=== PATIENT | male | born 1960 | race African-American/Black ===

== ENCOUNTER 2021-09-09 17:20 | Inpatient (IN) | payer MEDICAID ==
[~2021-09-09] VITALS: Ht 182.9 cm; Wt 50.6 kg
[2021-09-09] MEDS ORDERED: SODIUM CHLORIDE 0.9% 1,000 ML IV ONE (17:30)
[2021-09-09 18:06] LABS: BG BASE EXCESS -15.1 mmol/L (-2.0-2.0); BG CARBOXYHEMOGLOBIN 1.3 % (0.5-1.5); BG DEOXYHEMOGLOBIN 1.9 % (0.0-5.0); BG HCO3 ACT 9.6 mmol/L (22.0-26.0); BG METHEMOGLOBIN 0.1 % (0.0-1.5); BG OXYGEN SATURATION 98.1 % (92.0-98.5); BG OXYHEMOGLOBIN 96.7 % (94.0-97.0); BG PCO2 20.3 mmHg (35.0-45.0); BG PH 7.292 (7.350-7.450); BG PO2 127.3 mmHg (75.0-100.0); BG SAMPLE SITE RIGHT BRACHIAL; BG TOTAL HEMOGLOBIN 10.1 g/dL (12.0-18.0); BG VENT MODE NASAL CANNULA
[2021-09-09 18:44] LABS: CLARITY URINE CLOUDY (CLEAR); COLOR URINE YELLOW (YELLOW); KETONES URINE 1+ (NEGATIVE); LEUKOCYTE ESTERASE URINE 3+ (NEGATIVE); NITRITE URINE POSITIVE (NEGATIVE); OCCULT BLOOD URINE TRACE (NEGATIVE); PROTEIN URINE 1+ (NEGATIVE); SPECIFIC GRAVITY URINE 1.014 (1.005-1.030); UROBILINOGEN URINE 0.2 E.U./dL (0.2-1.0)
[2021-09-09 18:49] LABS: BASOPHILS % 0.3 % (0.0-2.0); EOSINOPHILS % 3.7 % (0.0-5.0); HEMATOCRIT. 27.4 % (42.0-52.0); HEMOGLOBIN. 8.7 g/dL (14.0-18.0); LYMPHOCYTES % 7.1 % (20.0-50.0); MEAN CORPUSCULAR HEMOGLOBIN 23.9 pg (28.0-32.0); MEAN CORPUSCULAR VOLUME 75.3 fL (80.0-94.0); MEAN PLATELET VOLUME 8.5 fl (7.4-10.4); MONOCYTES % 5.6 % (2.0-8.0); NEUTROPHILS % 83.3 % (40.0-76.0); PLATELET 662 x1000/uL (130-400); RED BLOOD CELL COUNT 3.63 mill/uL (4.7-6.1); RED CELL DISTRIBUTION WIDTH 15.6 % (11.6-14.6)
[2021-09-09 18:53] LABS: CHLORIDE 109 mEq/L (98-107)
[2021-09-09] MEDS ORDERED: CALCIUM GLUCONATE 1,000 MG in DEXT 5% WATER 100 ML IV ONE (19:15)
[2021-09-09] MEDS ORDERED: DEXTROSE 50% WATER 50ML SYRINGE IV ONE (19:15)
[2021-09-09] MEDS ORDERED: SODIUM CHLORIDE 0.9% 1000ML BAG (SEPSIS BOLUS) IV ONE (19:15)
[2021-09-09] MEDS ORDERED: INSULIN REGULAR (HUMULIN R) 300UNITS/3ML VIAL IV ONE (19:15)
[2021-09-09] MEDS ORDERED: SODIUM BICARBONATE 8.4% 1 MEQ/ML 50ML SYR IV ONE (19:15)
[2021-09-09] MEDS ORDERED: VANCOMYCIN 1 G PREMIX 200 ML IV ONE (19:15)
[2021-09-09] MEDS ORDERED: PIPERACILLIN/TAZ 3.375G PREMIX 50 ML IV ONE (19:15)
[2021-09-09] MEDS ORDERED: CALCIUM GLUCONATE 1GM PREMIX 50 ML IV NR (20:30)
[2021-09-10 11:30] LABS: CHLORIDE 118 mEq/L (98-107)
[2021-09-10] MEDS: SODIUM CHLORIDE 0.45% 1,000 ML IV SCH (16:30)
[2021-09-10] MEDS ORDERED: ONDANSETRON HCL 4MG/2ML INJ IV PRN (16:30)
[2021-09-10] MEDS ORDERED: CEFTRIAXONE 1 G PREMIX 50 ML IV SCH (17:00)
[2021-09-10 18:22] LABS: TOTAL IRON BINDING CAPACITY 123 ug/dL (250-450)
[2021-09-10 19:09] VITALS: BP 101/65
[2021-09-10 20:00] VITALS: BP 97/69
[2021-09-11] VITALS: BP 104/66
[2021-09-11 04:00] VITALS: BP 90/62
[2021-09-11] MEDS: SODIUM CHLORIDE 0.45% 1,000 ML IV SCH ×2 (06:17→20:37)
[2021-09-11 07:21] LABS: BASOPHILS % 0.2 % (0.0-2.0); EOSINOPHILS % 7.3 % (0.0-5.0); HEMATOCRIT. 25.7 % (42.0-52.0); HEMOGLOBIN. 7.9 g/dL (14.0-18.0); LYMPHOCYTES % 7.6 % (20.0-50.0); MEAN CORPUSCULAR HEMOGLOBIN 23.5 pg (28.0-32.0); MEAN CORPUSCULAR VOLUME 76.7 fL (80.0-94.0); MEAN PLATELET VOLUME 8.2 fl (7.4-10.4); MONOCYTES % 6.9 % (2.0-8.0); PLATELET 422 x1000/uL (130-400); RED BLOOD CELL COUNT 3.35 mill/uL (4.7-6.1); RED CELL DISTRIBUTION WIDTH 15.6 % (11.6-14.6)
[2021-09-11 08:00] VITALS: BP 93/63
[2021-09-11] MEDS: TAMSULOSIN HCL 0.4MG SR CAPSULE PO SCH (09:34)
[2021-09-11 12:00] VITALS: BP 95/66
[2021-09-11] MEDS: DOCUSATE SODIUM 250MG CAPSULE PO SCH (14:15)
[2021-09-11 16:00] VITALS: BP 96/67
[2021-09-11] MEDS: FERROUS SULFATE 325MG TABLET PO SCH (18:29)
[2021-09-11 20:00] VITALS: BP 96/68
[2021-09-11] MEDS ORDERED: CEFTRIAXONE 1,000 MG in DEXTROSE 5% WATER 50 ML IV SCH (20:00)
[2021-09-11] MEDS: IPRATROPIUM/ALBUTEROL 0.5-3(2.5)MG/3ML NEB HHN SCH (22:31)
[2021-09-12] MEDS: GUAIFENESIN-DM 200MG-20MG/10ML UDC PO PRN (00:30)
[2021-09-12 00:42] VITALS: BP 103/67
[2021-09-12] MEDS: IPRATROPIUM/ALBUTEROL 0.5-3(2.5)MG/3ML NEB HHN SCH ×5 (03:07→13:17)
[2021-09-12] MEDS: SODIUM CHLORIDE 0.45% 1,000 ML IV SCH ×2 (03:24→21:12)
[2021-09-12 04:00] VITALS: BP 94/65
[2021-09-12 06:15] LABS: CHLORIDE 117 mEq/L (98-107)
[2021-09-12 08:00] VITALS: BP 94/63
[2021-09-12] MEDS: DOCUSATE SODIUM 250MG CAPSULE PO SCH (09:00)
[2021-09-12] MEDS: TAMSULOSIN HCL 0.4MG SR CAPSULE PO SCH (09:00)
[2021-09-12] MEDS: FERROUS SULFATE 325MG TABLET PO SCH ×3 (09:47→17:18)
[2021-09-12 12:00] VITALS: BP 93/64
[2021-09-12 16:00] VITALS: BP 119/81
[2021-09-12] MEDS: MEROPENEM 1,000 MG in SODIUM CHLORIDE 0.9% 100 ML IV SCH (17:35)
[2021-09-12 20:00] VITALS: BP 103/71
[2021-09-13] VITALS: BP 98/67
[2021-09-13 04:00] VITALS: BP 101/72
[2021-09-13] MEDS: IPRATROPIUM/ALBUTEROL 0.5-3(2.5)MG/3ML NEB HHN SCH ×3 (04:45→23:40)
[2021-09-13] MEDS: MEROPENEM 1,000 MG in SODIUM CHLORIDE 0.9% 100 ML IV SCH ×2 (06:16→19:00)
[2021-09-13] MEDS: GUAIFENESIN-DM 200MG-20MG/10ML UDC PO PRN (06:21)
[2021-09-13 06:38] LABS: BASOPHILS % 0.5 % (0.0-2.0); CHLORIDE 118 mEq/L (98-107); EOSINOPHILS % 9.8 % (0.0-5.0); LYMPHOCYTES % 12.5 % (20.0-50.0); MEAN CORPUSCULAR HEMOGLOBIN 24.1 pg (28.0-32.0); MEAN CORPUSCULAR VOLUME 75.6 fL (80.0-94.0); MEAN PLATELET VOLUME 8.1 fl (7.4-10.4); MONOCYTES % 9.4 % (2.0-8.0); NEUTROPHILS % 67.8 % (40.0-76.0); PLATELET 312 x1000/uL (130-400); RED BLOOD CELL COUNT 2.56 mill/uL (4.7-6.1); RED CELL DISTRIBUTION WIDTH 15.4 % (11.6-14.6)
[2021-09-13 07:56] LABS: HEMATOCRIT. 19.4 % (42.0-52.0); HEMOGLOBIN. 6.2 g/dL (14.0-18.0)
[2021-09-13] MEDS: TAMSULOSIN HCL 0.4MG SR CAPSULE PO SCH (08:53)
[2021-09-13] MEDS: DOCUSATE SODIUM 250MG CAPSULE PO SCH (08:53)
[2021-09-13] MEDS: FERROUS SULFATE 325MG TABLET PO SCH ×3 (08:53→18:59)
[2021-09-13] MEDS: ACETAMINOPHEN 325MG TABLET PO PRN ×3 (08:54→22:11)
[2021-09-13] MEDS: SODIUM CHLORIDE 0.45% 1,000 ML IV SCH (15:17)
[2021-09-13 20:00] VITALS: BP 102/67
[2021-09-13 22:58] VITALS: BP 103/63
[2021-09-13 23:13] VITALS: BP 106/71
[2021-09-14] VITALS (11 sets, daily range): BP systolic 100–116; BP diastolic 71–83
[2021-09-14] MEDS: SODIUM CHLORIDE 0.45% 1,000 ML IV SCH ×2 (00:30→23:30)
[2021-09-14] MEDS: MEROPENEM 1,000 MG in SODIUM CHLORIDE 0.9% 100 ML IV SCH ×2 (06:20→18:15)
[2021-09-14 06:42] LABS: CHLORIDE 117 mEq/L (98-107)
[2021-09-14 06:55] LABS: HEMATOCRIT. 29.7 % (42.0-52.0); HEMOGLOBIN. 9.6 g/dL (14.0-18.0); RED BLOOD CELL COUNT 3.82 mill/uL (4.7-6.1)
[2021-09-14 06:56] LABS: BASOPHILS % 0.5 % (0.0-2.0); EOSINOPHILS % 10.8 % (0.0-5.0); LYMPHOCYTES % 9.2 % (20.0-50.0); MEAN CORPUSCULAR VOLUME 77.8 fL (80.0-94.0); MEAN PLATELET VOLUME 8.1 fl (7.4-10.4); MONOCYTES % 8.2 % (2.0-8.0); NEUTROPHILS % 71.3 % (40.0-76.0); PLATELET 306 x1000/uL (130-400); RED CELL DISTRIBUTION WIDTH 17.5 % (11.6-14.6)
[2021-09-14] MEDS: FERROUS SULFATE 325MG TABLET PO SCH ×3 (08:47→18:14)
[2021-09-14] MEDS: TAMSULOSIN HCL 0.4MG SR CAPSULE PO SCH (08:47)
[2021-09-14] MEDS: DOCUSATE SODIUM 250MG CAPSULE PO SCH (08:47)
[2021-09-14] MEDS: IPRATROPIUM/ALBUTEROL 0.5-3(2.5)MG/3ML NEB HHN SCH ×4 (08:57→20:32)
[2021-09-14] MEDS: PANTOPRAZOLE SODIUM 40 MG/VIAL IV SCH ×2 (15:04→23:30)
[2021-09-15] VITALS: BP 109/78
[2021-09-15] MEDS: IPRATROPIUM/ALBUTEROL 0.5-3(2.5)MG/3ML NEB HHN SCH ×5 (01:01→16:40)
[2021-09-15] MEDS: SODIUM CHLORIDE 0.45% 1,000 ML IV SCH ×2 (03:10→17:45)
[2021-09-15 04:00] VITALS: BP 112/80
[2021-09-15] MEDS: MEROPENEM 1,000 MG in SODIUM CHLORIDE 0.9% 100 ML IV SCH ×2 (06:03→17:52)
[2021-09-15 07:48] LABS: CHLORIDE 119 mEq/L (98-107)
[2021-09-15] MEDS: FERROUS SULFATE 325MG TABLET PO SCH ×3 (07:50→17:45)
[2021-09-15 07:52] LABS: INR 1.2
[2021-09-15 08:30] VITALS: BP 118/75
[2021-09-15 08:44] LABS: BASOPHILS % 0.4 % (0.0-2.0); EOSINOPHILS % 13.1 % (0.0-5.0); HEMATOCRIT. 28.4 % (42.0-52.0); HEMOGLOBIN. 9.3 g/dL (14.0-18.0); LYMPHOCYTES % 12.4 % (20.0-50.0); MEAN CORPUSCULAR HEMOGLOBIN 25.5 pg (28.0-32.0); MEAN CORPUSCULAR VOLUME 77.7 fL (80.0-94.0); MEAN PLATELET VOLUME 8.6 fl (7.4-10.4); MONOCYTES % 9.5 % (2.0-8.0); NEUTROPHILS % 64.6 % (40.0-76.0); PLATELET 282 x1000/uL (130-400); RED BLOOD CELL COUNT 3.66 mill/uL (4.7-6.1); RED CELL DISTRIBUTION WIDTH 17.4 % (11.6-14.6)
[2021-09-15] MEDS: TAMSULOSIN HCL 0.4MG SR CAPSULE PO SCH (09:00)
[2021-09-15] MEDS: DOCUSATE SODIUM 250MG CAPSULE PO SCH (09:00)
[2021-09-15] MEDS: PANTOPRAZOLE SODIUM 40 MG/VIAL IV SCH ×2 (09:48→21:20)
[2021-09-15 12:20] VITALS: BP 115/76
[2021-09-15 16:00] VITALS: BP 118/92
[2021-09-15] MEDS ORDERED: MIDAZOLAM HCL 2 MG/2 ML VIAL ONE ×2 (16:06→16:07)
[2021-09-15] MEDS ORDERED: PROPOFOL 200MG/20ML VIAL IV ONE (16:07)
[2021-09-15] MEDS ORDERED: LIDOCAINE HCL 1% 20ML VIAL (Pyxis) INJ ONE (16:08)
[2021-09-16] VITALS (7 sets, daily range): BP systolic 100–124; BP diastolic 60–90
[2021-09-16] MEDS: MEROPENEM 1,000 MG in SODIUM CHLORIDE 0.9% 100 ML IV SCH ×2 (05:05→17:52)
[2021-09-16] MEDS: SODIUM CHLORIDE 0.45% 1,000 ML IV SCH ×2 (05:06→17:52)
[2021-09-16] MEDS: IPRATROPIUM/ALBUTEROL 0.5-3(2.5)MG/3ML NEB HHN SCH ×4 (08:12→16:37)
[2021-09-16] MEDS: DOCUSATE SODIUM 250MG CAPSULE PO SCH (09:00)
[2021-09-16] MEDS: PANTOPRAZOLE SODIUM 40 MG/VIAL IV SCH ×2 (10:03→20:51)
[2021-09-16] MEDS: TAMSULOSIN HCL 0.4MG SR CAPSULE PO SCH (10:04)
[2021-09-16] MEDS: FERROUS SULFATE 325MG TABLET PO SCH ×3 (10:04→17:52)
[2021-09-16] MEDS: GUAIFENESIN-DM 200MG-20MG/10ML UDC PO PRN ×2 (10:09→17:53)
[2021-09-16] MEDS: ACETAMINOPHEN 325MG TABLET PO PRN (20:52)
[2021-09-17 04:00] VITALS: BP 121/80
[2021-09-17] MEDS: MEROPENEM 1,000 MG in SODIUM CHLORIDE 0.9% 100 ML IV SCH (06:14)
[2021-09-17] MEDS: GUAIFENESIN-DM 200MG-20MG/10ML UDC PO PRN ×2 (06:42→21:44)
[2021-09-17 08:00] VITALS: BP 122/86
[2021-09-17] MEDS: SODIUM CHLORIDE 0.45% 1,000 ML IV SCH ×2 (08:30→21:36)
[2021-09-17] MEDS: DOCUSATE SODIUM 250MG CAPSULE PO SCH (09:00)
[2021-09-17] MEDS: TAMSULOSIN HCL 0.4MG SR CAPSULE PO SCH (09:14)
[2021-09-17] MEDS: FERROUS SULFATE 325MG TABLET PO SCH ×3 (09:14→18:03)
[2021-09-17] MEDS: THIAMINE HCL 100MG TABLET PO SCH (09:14)
[2021-09-17] MEDS: PANTOPRAZOLE SODIUM 40 MG/VIAL IV SCH ×2 (09:14→21:36)
[2021-09-17] MEDS: IPRATROPIUM/ALBUTEROL 0.5-3(2.5)MG/3ML NEB HHN SCH ×3 (10:07→22:01)
[2021-09-17 11:40] LABS: BG BASE EXCESS -9.6 mmol/L (-2.0-2.0); BG CARBOXYHEMOGLOBIN 0.3 % (0.5-1.5); BG DEOXYHEMOGLOBIN 8.4 % (0.0-5.0); BG FRACTION INSPIRED OXYGEN 21; BG HCO3 ACT 14.7 mmol/L (22.0-26.0); BG METHEMOGLOBIN 0.3 % (0.0-1.5); BG OXYGEN SATURATION 91.5 % (92.0-98.5); BG PCO2 26.8 mmHg (35.0-45.0); BG PH 7.356 (7.350-7.450); BG PO2 60.6 mmHg (75.0-100.0); BG TOTAL HEMOGLOBIN 9.9 g/dL (12.0-18.0); BG VENT MODE ROOM AIR
[2021-09-17 12:00] VITALS: BP 104/72
[2021-09-17 16:00] VITALS: BP 120/70
[2021-09-17 20:00] VITALS: BP 113/80
[2021-09-18] VITALS (7 sets, daily range): BP systolic 106–129; BP diastolic 73–94
[2021-09-18] MEDS: IPRATROPIUM/ALBUTEROL 0.5-3(2.5)MG/3ML NEB HHN SCH ×4 (08:21→20:39)
[2021-09-18] MEDS: FERROUS SULFATE 325MG TABLET PO SCH ×3 (08:39→17:28)
[2021-09-18] MEDS: GUAIFENESIN-DM 200MG-20MG/10ML UDC PO PRN ×2 (08:39→22:09)
[2021-09-18] MEDS: PANTOPRAZOLE SODIUM 40 MG/VIAL IV SCH ×2 (09:06→22:00)
[2021-09-18] MEDS: TAMSULOSIN HCL 0.4MG SR CAPSULE PO SCH (09:11)
[2021-09-18] MEDS: DOCUSATE SODIUM 250MG CAPSULE PO SCH (09:11)
[2021-09-18] MEDS: THIAMINE HCL 100MG TABLET PO SCH (09:12)
[2021-09-18] MEDS: MULTIVITAMINS,THER W-MINERALS TABLET PO SCH (09:12)
[2021-09-18] MEDS ORDERED: FLUTICASONE PROPIONATE 50MCG/SPRAY BOTTLE BOTHNSTRLS SCH ×2 (13:00→21:00)
[2021-09-18] MEDS: FLUTICASONE PROPIONATE 50MCG/SPRAY BOTTLE BOTHNSTRLS PRN (13:23)
[2021-09-18] MEDS: SODIUM CHLORIDE 0.45% 1,000 ML IV SCH (17:31)
[2021-09-19] VITALS (16 sets, daily range): BP systolic 90–109; BP diastolic 58–71
[2021-09-19] MEDS: SODIUM CHLORIDE 0.45% 1,000 ML IV SCH (00:30)
[2021-09-19] MEDS: IPRATROPIUM/ALBUTEROL 0.5-3(2.5)MG/3ML NEB HHN SCH ×5 (02:58→20:34)
[2021-09-19] MEDS: FLUTICASONE PROPIONATE 50MCG/SPRAY BOTTLE BOTHNSTRLS PRN (05:21)
[2021-09-19 06:10] LABS: BASOPHILS % 0.5 % (0.0-2.0); EOSINOPHILS % 10.8 % (0.0-5.0); HEMATOCRIT. 21.9 % (42.0-52.0); HEMOGLOBIN. 7.2 g/dL (14.0-18.0); LYMPHOCYTES % 13.5 % (20.0-50.0); MEAN CORPUSCULAR HEMOGLOBIN 25.4 pg (28.0-32.0); MEAN CORPUSCULAR VOLUME 77.6 fL (80.0-94.0); MONOCYTES % 7.3 % (2.0-8.0); NEUTROPHILS % 67.9 % (40.0-76.0); PLATELET 260 x1000/uL (130-400); RED BLOOD CELL COUNT 2.82 mill/uL (4.7-6.1)
[2021-09-19 06:40] LABS: INR 1.2; PROTHROMBIN TIME 13.2 sec (9.6-11.0)
[2021-09-19] MEDS: FERROUS SULFATE 325MG TABLET PO SCH ×3 (07:50→17:39)
[2021-09-19] MEDS ORDERED: SODIUM CHLORIDE 0.9% 500 ML IV ONE (08:45)
[2021-09-19] MEDS: TAMSULOSIN HCL 0.4MG SR CAPSULE PO SCH (09:00)
[2021-09-19] MEDS: THIAMINE HCL 100MG TABLET PO SCH (09:00)
[2021-09-19] MEDS: DOCUSATE SODIUM 250MG CAPSULE PO SCH (09:00)
[2021-09-19] MEDS: MULTIVITAMINS,THER W-MINERALS TABLET PO SCH (09:00)
[2021-09-19] MEDS: PANTOPRAZOLE SODIUM 40 MG/VIAL IV SCH ×2 (10:13→21:37)
[2021-09-19] MEDS ORDERED: SPIR25TA6 PO (11:26)
[2021-09-19] MEDS ORDERED: ATOR20TA65 MT (11:26)
[2021-09-19] MEDS ORDERED: SACU1TAB PO (11:26)
[2021-09-19] MEDS ORDERED: ASPI-1497 PO (11:26)
[2021-09-19] MEDS ORDERED: ATOR20TA65 PO (11:26)
[2021-09-19] MEDS ORDERED: FURO20TA4 PO (11:26)
[2021-09-19] MEDS ORDERED: METO25TA6 PO (11:26)
[2021-09-19] MEDS: MEROPENEM 1,000 MG in SODIUM CHLORIDE 0.9% 100 ML IV SCH (17:37)
[2021-09-19 20:21] LABS: HEMATOCRIT 25.8 % (42.0-52.0); HEMOGLOBIN 8.2 g/dL (14.0-18.0)
[2021-09-20] VITALS (8 sets, daily range): BP systolic 91–113; BP diastolic 60–83
[2021-09-20] MEDS: IPRATROPIUM/ALBUTEROL 0.5-3(2.5)MG/3ML NEB HHN SCH ×5 (00:15→20:00)
[2021-09-20] MEDS: MEROPENEM 1,000 MG in SODIUM CHLORIDE 0.9% 100 ML IV SCH ×2 (06:33→17:38)
[2021-09-20 06:39] LABS: HEMOGLOBIN. 7.2 g/dL (14.0-18.0); MEAN CORPUSCULAR HEMOGLOBIN 27.2 pg (28.0-32.0); MEAN CORPUSCULAR VOLUME 79.5 fL (80.0-94.0); MEAN PLATELET VOLUME 9.1 fl (7.4-10.4); PLATELET 202 x1000/uL (130-400); RED BLOOD CELL COUNT 2.64 mill/uL (4.7-6.1); RED CELL DISTRIBUTION WIDTH 19.1 % (11.6-14.6)
[2021-09-20 06:40] LABS: CHLORIDE 120 mEq/L (98-107)
[2021-09-20] MEDS: PANTOPRAZOLE SODIUM 40 MG/VIAL IV SCH ×2 (08:57→21:28)
[2021-09-20] MEDS: TAMSULOSIN HCL 0.4MG SR CAPSULE PO SCH (08:57)
[2021-09-20] MEDS: THIAMINE HCL 100MG TABLET PO SCH (08:57)
[2021-09-20] MEDS: MULTIVITAMINS,THER W-MINERALS TABLET PO SCH (08:57)
[2021-09-20] MEDS: DOCUSATE SODIUM 250MG CAPSULE PO SCH (08:57)
[2021-09-20] MEDS: FERROUS SULFATE 325MG TABLET PO SCH ×3 (08:58→17:38)
[2021-09-20 19:19] LABS: PLATELET ESTIMATE NORMAL
[2021-09-20 21:13] LABS: HEMATOCRIT 28.1 % (42.0-52.0); HEMOGLOBIN 9.4 g/dL (14.0-18.0)
[2021-09-21] VITALS: BP 110/48
[2021-09-21 04:00] VITALS: BP 108/75
[2021-09-21] MEDS: MEROPENEM 1,000 MG in SODIUM CHLORIDE 0.9% 100 ML IV SCH ×2 (06:25→17:50)
[2021-09-21 08:00] VITALS: BP 105/77
[2021-09-21] MEDS: GUAIFENESIN-DM 200MG-20MG/10ML UDC PO PRN ×2 (09:15→17:50)
[2021-09-21] MEDS: FLUTICASONE PROPIONATE 50MCG/SPRAY BOTTLE BOTHNSTRLS PRN (09:15)
[2021-09-21] MEDS: MULTIVITAMINS,THER W-MINERALS TABLET PO SCH (09:15)
[2021-09-21] MEDS: FERROUS SULFATE 325MG TABLET PO SCH ×3 (09:15→17:50)
[2021-09-21] MEDS: THIAMINE HCL 100MG TABLET PO SCH (09:15)
[2021-09-21] MEDS: DOCUSATE SODIUM 250MG CAPSULE PO SCH (09:15)
[2021-09-21] MEDS: PANTOPRAZOLE SODIUM 40 MG/VIAL IV SCH ×2 (09:16→20:21)
[2021-09-21] MEDS: TAMSULOSIN HCL 0.4MG SR CAPSULE PO SCH (09:16)
[2021-09-21] MEDS: IPRATROPIUM/ALBUTEROL 0.5-3(2.5)MG/3ML NEB HHN SCH ×3 (09:31→20:00)
[2021-09-21 12:00] VITALS: BP 103/76
[2021-09-21 15:38] LABS: BG BASE EXCESS -11.3 mmol/L (-2.0-2.0); BG CARBOXYHEMOGLOBIN 0.2 % (0.5-1.5); BG DEOXYHEMOGLOBIN 14.5 % (0.0-5.0); BG OXYGEN SATURATION 85.5 % (92.0-98.5); BG OXYHEMOGLOBIN 85.3 % (94.0-97.0); BG PCO2 24.3 mmHg (35.0-45.0); BG PH 7.346 (7.350-7.450); BG PO2 54.2 mmHg (75.0-100.0); BG SAMPLE SITE RIGHT BRACHIAL; BG TOTAL HEMOGLOBIN 8.6 g/dL (12.0-18.0); BG VENT MODE ROOM AIR
[2021-09-21 15:45] LABS: BASOPHILS % 0.9 % (0.0-2.0); EOSINOPHILS % 16.2 % (0.0-5.0); HEMATOCRIT. 30.2 % (42.0-52.0); HEMOGLOBIN. 9.7 g/dL (14.0-18.0); LYMPHOCYTES % 12.3 % (20.0-50.0); MEAN CORPUSCULAR HEMOGLOBIN 25.8 pg (28.0-32.0); MEAN CORPUSCULAR VOLUME 80.4 fL (80.0-94.0); MONOCYTES % 6.1 % (2.0-8.0); NEUTROPHILS % 64.5 % (40.0-76.0); PLATELET 203 x1000/uL (130-400); RED BLOOD CELL COUNT 3.76 mill/uL (4.7-6.1); RED CELL DISTRIBUTION WIDTH 18.6 % (11.6-14.6)
[2021-09-21 15:57] LABS: CHLORIDE 117 mEq/L (98-107)
[2021-09-21 16:00] VITALS: BP 110/77
[2021-09-21 20:00] VITALS: BP 117/82
[2021-09-22] VITALS: BP 114/86
[2021-09-22 01:22] LABS: HEMATOCRIT 27.5 % (42.0-52.0); HEMOGLOBIN 9.2 g/dL (14.0-18.0)
[2021-09-22] MEDS: IPRATROPIUM/ALBUTEROL 0.5-3(2.5)MG/3ML NEB HHN SCH ×6 (01:50→21:00)
[2021-09-22 04:00] VITALS: BP 127/91
[2021-09-22] MEDS: MEROPENEM 1,000 MG in SODIUM CHLORIDE 0.9% 100 ML IV SCH ×2 (06:12→19:00)
[2021-09-22 07:27] LABS: CHLORIDE 119 mEq/L (98-107)
[2021-09-22 08:00] VITALS: BP 119/84
[2021-09-22] MEDS: GUAIFENESIN-DM 200MG-20MG/10ML UDC PO PRN ×2 (09:27→19:11)
[2021-09-22] MEDS: THIAMINE HCL 100MG TABLET PO SCH (09:28)
[2021-09-22] MEDS: PANTOPRAZOLE SODIUM 40 MG/VIAL IV SCH ×2 (09:28→21:27)
[2021-09-22] MEDS: DOCUSATE SODIUM 250MG CAPSULE PO SCH (09:28)
[2021-09-22] MEDS: FERROUS SULFATE 325MG TABLET PO SCH ×3 (09:28→19:01)
[2021-09-22] MEDS: MULTIVITAMINS,THER W-MINERALS TABLET PO SCH (09:28)
[2021-09-22] MEDS: TAMSULOSIN HCL 0.4MG SR CAPSULE PO SCH (09:28)
[2021-09-22 12:00] VITALS: BP 91/59
[2021-09-22 16:00] VITALS: BP 122/84
[2021-09-22 20:00] VITALS: BP 133/87
[2021-09-23] VITALS: BP 121/83
[2021-09-23 01:05] LABS: HEMATOCRIT 27.4 % (42.0-52.0); HEMOGLOBIN 8.9 g/dL (14.0-18.0)
[2021-09-23] MEDS: IPRATROPIUM/ALBUTEROL 0.5-3(2.5)MG/3ML NEB HHN SCH ×5 (01:29→21:20)
[2021-09-23 04:00] VITALS: BP 109/74
[2021-09-23] MEDS: MEROPENEM 1,000 MG in SODIUM CHLORIDE 0.9% 100 ML IV SCH ×2 (05:28→17:48)
[2021-09-23 08:07] VITALS: BP 115/80
[2021-09-23] MEDS: MULTIVITAMINS,THER W-MINERALS TABLET PO SCH (09:15)
[2021-09-23] MEDS: PANTOPRAZOLE SODIUM 40 MG/VIAL IV SCH ×2 (09:15→21:47)
[2021-09-23] MEDS: THIAMINE HCL 100MG TABLET PO SCH (09:15)
[2021-09-23] MEDS: FERROUS SULFATE 325MG TABLET PO SCH ×3 (09:15→17:48)
[2021-09-23] MEDS: DOCUSATE SODIUM 250MG CAPSULE PO SCH (09:15)
[2021-09-23] MEDS: GUAIFENESIN-DM 200MG-20MG/10ML UDC PO PRN ×2 (09:15→17:48)
[2021-09-23] MEDS: TAMSULOSIN HCL 0.4MG SR CAPSULE PO SCH (09:16)
[2021-09-23 12:07] VITALS: BP 111/78
[2021-09-23 16:16] VITALS: BP 121/84
[2021-09-23 20:00] VITALS: BP 126/83
[2021-09-24] VITALS: BP 131/82
[2021-09-24 00:48] LABS: HEMATOCRIT 26.5 % (42.0-52.0); HEMOGLOBIN 8.7 g/dL (14.0-18.0)
[2021-09-24 04:00] VITALS: BP 124/84
[2021-09-24] MEDS: IPRATROPIUM/ALBUTEROL 0.5-3(2.5)MG/3ML NEB HHN SCH ×3 (04:00→09:50)
[2021-09-24] MEDS: DOCUSATE SODIUM 250MG CAPSULE PO SCH (09:53)
[2021-09-24] MEDS: TAMSULOSIN HCL 0.4MG SR CAPSULE PO SCH (09:53)
[2021-09-24] MEDS: THIAMINE HCL 100MG TABLET PO SCH (09:53)
[2021-09-24] MEDS: MULTIVITAMINS,THER W-MINERALS TABLET PO SCH (09:53)
[2021-09-24] MEDS: FERROUS SULFATE 325MG TABLET PO SCH (09:53)
[2021-09-24] MEDS: PANTOPRAZOLE SODIUM 40 MG/VIAL IV SCH (09:54)
[2021-09-24 11:39] VITALS: BP 113/76
[2021-09-24 13:15] VITALS: BP 113/76
== END 2021-09-24 15:28 | DRG 720 ==
LOC: ER 17:46 → 6WST 22:17 → CANRESERV 09-10 14:21 → ENRESERV 09-10 14:21
PROVIDERS: ADMIT Internal Medicine; ATTEND Internal Medicine
PROC: 30233N1 Transfusion of Nonautologous Red Blood Cells into Peripheral Vein, Percutaneous Approach (ICD-10-PCS; principal; 2021-09-13)
DX: A41.51 Sepsis due to Escherichia coli [E. coli] (principal); N17.0 Acute kidney failure with tubular necrosis; R65.21 Severe sepsis with septic shock; E43 Unspecified severe protein-calorie malnutrition; K29.71 Gastritis, unspecified, with bleeding; J18.9 Pneumonia, unspecified organism; K20.91 Esophagitis, unspecified with bleeding; G90.8 Other disorders of autonomic nervous system; F10.10 Alcohol abuse, uncomplicated; E87.5 Hyperkalemia; F17.290 Nicotine dependence, other tobacco product, uncomplicated; D50.0 Iron deficiency anemia secondary to blood loss (chronic); K59.00 Constipation, unspecified; R09.02 Hypoxemia; Z16.12 Extended spectrum beta lactamase (ESBL) resistance; Z20.822 Contact with and (suspected) exposure to COVID-19; Z85.118 Personal history of other malignant neoplasm of bronchus and lung; Z68.1 Body mass index [BMI] 19.9 or less, adult; N39.0 Urinary tract infection, site not specified
CPT/HCPCS: 36415; 36600; 71045; 74018; 76700; 80048; 80053; 81003; 82270; 82375; 82805; 82962; 83540; 83550; 83605; 83880; 84145; 84484; 85014; 85018; 85025; 85044; 85384; 86850; 86900; 86920; 87077; 87186; 87426; 93005; 94640; 96365; 96367; 96375; 97110; 97162; 97166; 97530; 99291; A6261; C1893; C9113; C9803; J0610; J0696; J1815; J2185; J2250; J2405; J2543; J2704; J3370; J3490; J7030; J7040; J7050; J7060; P9016; U0003; U0005

== ENCOUNTER 2021-09-28 16:00 | Inpatient (IN) | payer MEDICAID ==
[~2021-09-28] VITALS: Ht 182.9 cm; Wt 53.1 kg
[~2021-09-28 16:00] MED LIST: ASPI-1497 PO; ATOR20TA65 MT; ATOR20TA65 PO; FURO20TA4 PO; METO25TA6 PO; SACU1TAB PO; SPIR25TA6 PO
[2021-09-28] MEDS ORDERED: ACETAMINOPHEN 325MG TABLET PO ONE (17:30)
[2021-09-28 17:57] LABS: HEMATOCRIT. 26.9 % (42.0-52.0); HEMOGLOBIN. 8.6 g/dL (14.0-18.0); MEAN CORPUSCULAR HEMOGLOBIN 25.7 pg (28.0-32.0); MEAN CORPUSCULAR VOLUME 80.2 fL (80.0-94.0); MEAN PLATELET VOLUME 8.3 fl (7.4-10.4); PLATELET 394 x1000/uL (130-400); RED BLOOD CELL COUNT 3.35 mill/uL (4.7-6.1); RED CELL DISTRIBUTION WIDTH 19.7 % (11.6-14.6)
[2021-09-28 18:05] LABS: CHLORIDE 115 mEq/L (98-107)
[2021-09-28 18:42] LABS: PLATELET ESTIMATE NORMAL
[2021-09-28] MEDS ORDERED: PIPERACILLIN/TAZ 3.375G PREMIX 50 ML IV ONE (22:00)
[2021-09-28] MEDS ORDERED: SODIUM CHLORIDE 0.9% 1000ML BAG (SEPSIS BOLUS) IV ONE (22:00)
[2021-09-28] MEDS ORDERED: VANCOMYCIN 1G PREMIX 200 ML IV ONE (22:00)
[2021-09-28 22:07] LABS: INR 1.1; PARTIAL THROMBOPLASTIN TIME 31.9 sec (23.4-31.0); PROTHROMBIN TIME 12.2 sec (9.6-11.0)
[2021-09-28 22:13] LABS: CLARITY URINE CLEAR (CLEAR); COLOR URINE YELLOW (YELLOW); KETONES URINE NEGATIVE (NEGATIVE); LEUKOCYTE ESTERASE URINE NEGATIVE (NEGATIVE); NITRITE URINE POSITIVE (NEGATIVE); OCCULT BLOOD URINE NEGATIVE (NEGATIVE); PROTEIN URINE TRACE (NEGATIVE); SPECIFIC GRAVITY URINE 1.014 (1.005-1.030); UROBILINOGEN URINE 0.2 E.U./dL (0.2-1.0)
[2021-09-29] MEDS ORDERED: LACTULOSE 20G/30ML UDC PO SCH (08:30)
[2021-09-29] MEDS ORDERED: ONDANSETRON HCL 4MG/2ML INJ IV PRN (08:30)
[2021-09-29] MEDS ORDERED: ACETAMINOPHEN 325MG TABLET PO PRN (08:30)
[2021-09-29] MEDS ORDERED: BISACODYL 10MG SUPP PR SCH (08:30)
[2021-09-29] MEDS: MEROPENEM 1000MG in NORMAL SALINE 100ML IV SCH ×2 (09:00→23:38)
[2021-09-29] MEDS ORDERED: MEROPENEM 1,000 MG in SODIUM CHLORIDE 0.9% 100 ML IV SCH (10:00)
[2021-09-29 15:00] VITALS: BP 121/68
[2021-09-29 15:30] VITALS: BP 127/88
[2021-09-29 20:00] VITALS: BP 99/76
[2021-09-29] MEDS ORDERED: SORBITOL 70% SOLN 30ML PO NR (20:00)
[2021-09-29 20:18] LABS: HEMATOCRIT 25.9 % (42.0-52.0); HEMOGLOBIN 8.4 g/dL (14.0-18.0)
[2021-09-29 20:38] LABS: TOTAL IRON BINDING CAPACITY 125 ug/dL (250-450)
[2021-09-29 21:01] LABS: FOLIC ACID (FOLATE) SERUM 5.8 ng/mL (>5.38)
[2021-09-29] MEDS: PANTOPRAZOLE SODIUM 40 MG/VIAL IV SCH (21:44)
[2021-09-30] VITALS: BP 121/80
[2021-09-30 04:00] VITALS: BP 138/90
[2021-09-30] MEDS ORDERED: SORBITOL 70% SOLN 30ML PO NR (06:00)
[2021-09-30 08:00] VITALS: BP 108/80
[2021-09-30 08:02] LABS: CHLORIDE 120 mEq/L (98-107)
[2021-09-30 08:08] LABS: HEMATOCRIT. 28.8 % (42.0-52.0); HEMOGLOBIN. 9.6 g/dL (14.0-18.0); MEAN CORPUSCULAR HEMOGLOBIN 26.3 pg (28.0-32.0); MEAN CORPUSCULAR VOLUME 78.8 fL (80.0-94.0); MEAN PLATELET VOLUME 8.5 fl (7.4-10.4); PLATELET 511 x1000/uL (130-400); RED BLOOD CELL COUNT 3.65 mill/uL (4.7-6.1); RED CELL DISTRIBUTION WIDTH 20.2 % (11.6-14.6)
[2021-09-30] MEDS: MEROPENEM 1000MG in NORMAL SALINE 100ML IV SCH ×2 (08:58→20:19)
[2021-09-30] MEDS: PANTOPRAZOLE SODIUM 40 MG/VIAL IV SCH ×2 (08:58→16:54)
[2021-09-30] MEDS ORDERED: INFLUENZA VACCINE 05/PF 0.5 ML SYRINGE IM ONE (10:00)
[2021-09-30 11:57] LABS: PLATELET ESTIMATE INCREASED
[2021-09-30 12:00] VITALS: BP 114/81
[2021-09-30 16:00] VITALS: BP 118/80
[2021-09-30 19:14] LABS: HEMOGLOBIN 8.1 g/dL (14.0-18.0)
[2021-09-30 20:00] VITALS: BP 122/80
[2021-10-01] VITALS (10 sets, daily range): BP systolic 112–133; BP diastolic 74–88
[2021-10-01 08:24] LABS: HEMOGLOBIN. 7.4 g/dL (14.0-18.0); MEAN CORPUSCULAR HEMOGLOBIN 26.3 pg (28.0-32.0); MEAN CORPUSCULAR VOLUME 77.9 fL (80.0-94.0); MEAN PLATELET VOLUME 8.3 fl (7.4-10.4); PLATELET 429 x1000/uL (130-400); RED BLOOD CELL COUNT 2.83 mill/uL (4.7-6.1); RED CELL DISTRIBUTION WIDTH 20.1 % (11.6-14.6)
[2021-10-01] MEDS: MEROPENEM 1000MG in NORMAL SALINE 100ML IV SCH ×2 (08:56→20:19)
[2021-10-01] MEDS: PANTOPRAZOLE SODIUM 40 MG/VIAL IV SCH ×2 (08:56→17:49)
[2021-10-01 11:02] LABS: PLATELET ESTIMATE INCREASED
[2021-10-01] MEDS ORDERED: MAGNESIUM 4 G PREMIX 100 ML IV NR (11:30)
[2021-10-01] MEDS: MEGESTROL ACETATE 400 MG/10 ML UDC PO SCH (13:28)
[2021-10-01] MEDS: GUAIFENESIN-DM 200MG-20MG/10ML UDC PO PRN (13:59)
[2021-10-01 21:44] LABS: HEMATOCRIT 30.8 % (42.0-52.0); HEMOGLOBIN 9.7 g/dL (14.0-18.0)
[2021-10-01 22:29] LABS: HEPATITIS B SURFACE ANTIGEN NEGATIVE
[2021-10-02] VITALS: BP 128/74
[2021-10-02 04:00] VITALS: BP 123/74
[2021-10-02 06:21] LABS: BASOPHILS % 0.6 % (0.0-2.0); EOSINOPHILS % 10.8 % (0.0-5.0); HEMOGLOBIN. 9.7 g/dL (14.0-18.0); LYMPHOCYTES % 15.6 % (20.0-50.0); MEAN CORPUSCULAR HEMOGLOBIN 25.4 pg (28.0-32.0); MEAN CORPUSCULAR VOLUME 76.4 fL (80.0-94.0); MEAN PLATELET VOLUME 8.3 fl (7.4-10.4); MONOCYTES % 6.5 % (2.0-8.0); NEUTROPHILS % 66.5 % (40.0-76.0); PLATELET 438 x1000/uL (130-400); RED CELL DISTRIBUTION WIDTH 20.7 % (11.6-14.6)
[2021-10-02 06:47] LABS: CHLORIDE 115 mEq/L (98-107)
[2021-10-02 08:00] VITALS: BP 126/87
[2021-10-02] MEDS: PANTOPRAZOLE SODIUM 40 MG/VIAL IV SCH ×2 (09:04→17:31)
[2021-10-02] MEDS: MEGESTROL ACETATE 400 MG/10 ML UDC PO SCH (09:04)
[2021-10-02] MEDS: GUAIFENESIN-DM 200MG-20MG/10ML UDC PO PRN ×2 (09:14→22:16)
[2021-10-02] MEDS: MEROPENEM 1000MG in NORMAL SALINE 100ML IV SCH ×2 (09:15→21:06)
[2021-10-02 12:00] VITALS: BP_SYST 111; BP_SYST 135; BP_DIAS 74; BP_DIAS 95
[2021-10-02] MEDS ORDERED: SODIUM CHLORIDE 0.9% 500 ML IV ONE (15:30)
[2021-10-02 16:00] VITALS: BP 111/74
[2021-10-02] MEDS ORDERED: SODIUM POLYSTYRENE SULFONATE 15 G/60 ML BOT PO NR (16:00)
[2021-10-02 18:10] LABS: HEMATOCRIT 28.9 % (42.0-52.0); HEMOGLOBIN 9.2 g/dL (14.0-18.0)
[2021-10-02 18:19] LABS: CHLORIDE 117 mEq/L (98-107)
[2021-10-02 20:00] VITALS: BP 125/89
[2021-10-03] VITALS: BP 124/87
[2021-10-03 04:00] VITALS: BP 127/83
[2021-10-03 06:57] LABS: BASOPHILS % 0.4 % (0.0-2.0); EOSINOPHILS % 9.5 % (0.0-5.0); HEMATOCRIT. 26.8 % (42.0-52.0); HEMOGLOBIN. 8.9 g/dL (14.0-18.0); MEAN CORPUSCULAR HEMOGLOBIN 25.6 pg (28.0-32.0); MEAN PLATELET VOLUME 8.2 fl (7.4-10.4); MONOCYTES % 10.5 % (2.0-8.0); NEUTROPHILS % 63.6 % (40.0-76.0); PLATELET 421 x1000/uL (130-400); RED BLOOD CELL COUNT 3.48 mill/uL (4.7-6.1); RED CELL DISTRIBUTION WIDTH 20.7 % (11.6-14.6)
[2021-10-03 07:14] LABS: CHLORIDE 116 mEq/L (98-107)
[2021-10-03 08:00] VITALS: BP 126/82
[2021-10-03] MEDS: PANTOPRAZOLE SODIUM 40 MG/VIAL IV SCH ×2 (09:13→16:59)
[2021-10-03] MEDS: MEGESTROL ACETATE 400 MG/10 ML UDC PO SCH (09:13)
[2021-10-03] MEDS: GUAIFENESIN-DM 200MG-20MG/10ML UDC PO PRN ×2 (11:01→17:08)
[2021-10-03 12:00] VITALS: BP 121/82
[2021-10-03] MEDS: MEROPENEM 1000MG in NORMAL SALINE 100ML IV SCH ×2 (12:43→20:42)
[2021-10-03] MEDS ORDERED: SODIUM POLYSTYRENE SULFONATE 15 G/60 ML BOT PO NR (15:30)
[2021-10-03 16:00] VITALS: BP 104/73
[2021-10-03 20:00] VITALS: BP 127/89
[2021-10-04] VITALS: BP 127/89
[2021-10-04 04:00] VITALS: BP 119/87
[2021-10-04 07:27] LABS: BASOPHILS % 0.8 % (0.0-2.0); EOSINOPHILS % 10.8 % (0.0-5.0); HEMATOCRIT. 28.5 % (42.0-52.0); LYMPHOCYTES % 20.3 % (20.0-50.0); MEAN CORPUSCULAR HEMOGLOBIN 24.3 pg (28.0-32.0); MEAN CORPUSCULAR VOLUME 77.2 fL (80.0-94.0); MONOCYTES % 11.1 % (2.0-8.0); PLATELET 486 x1000/uL (130-400); RED BLOOD CELL COUNT 3.69 mill/uL (4.7-6.1); RED CELL DISTRIBUTION WIDTH 20.5 % (11.6-14.6)
[2021-10-04 08:00] VITALS: BP 124/89
[2021-10-04 08:13] LABS: CHLORIDE 115 mEq/L (98-107)
[2021-10-04] MEDS: PANTOPRAZOLE SODIUM 40 MG/VIAL IV SCH (09:47)
[2021-10-04] MEDS: MEROPENEM 1000MG in NORMAL SALINE 100ML IV SCH (09:47)
[2021-10-04] MEDS: MEGESTROL ACETATE 400 MG/10 ML UDC PO SCH (09:47)
[2021-10-04 12:00] VITALS: BP 114/82
[2021-10-04] MEDS ORDERED: SODIUM POLYSTYRENE SULFONATE 15 G/60 ML BOT PO SCH (13:00)
[2021-10-04 14:31] VITALS: BP 111/78
== END 2021-10-04 15:37 | DRG 720 ==
LOC: ER 16:00 → MICUSO 23:13 → 6EST 09-29 14:52
PROVIDERS: ADMIT Internal Medicine; ATTEND Internal Medicine
PROC: 30233N1 Transfusion of Nonautologous Red Blood Cells into Peripheral Vein, Percutaneous Approach (ICD-10-PCS; principal; 2021-10-01)
DX: A41.9 Sepsis, unspecified organism (principal); E43 Unspecified severe protein-calorie malnutrition; N17.9 Acute kidney failure, unspecified; J18.9 Pneumonia, unspecified organism; E87.8 Other disorders of electrolyte and fluid balance, not elsewhere classified; Z99.81 Dependence on supplemental oxygen; K62.4 Stenosis of anus and rectum; D64.9 Anemia, unspecified; E87.5 Hyperkalemia; S31.839A Unspecified open wound of anus, initial encounter; K56.41 Fecal impaction; R74.01 Elevation of levels of liver transaminase levels; K21.9 Gastro-esophageal reflux disease without esophagitis; K80.20 Calculus of gallbladder without cholecystitis without obstruction; F10.10 Alcohol abuse, uncomplicated; Y90.9 Presence of alcohol in blood, level not specified; K62.89 Other specified diseases of anus and rectum; Z20.822 Contact with and (suspected) exposure to COVID-19; I25.10 Atherosclerotic heart disease of native coronary artery without angina pectoris; R74.8 Abnormal levels of other serum enzymes; X58.XXXA Exposure to other specified factors, initial encounter; K82.8 Other specified diseases of gallbladder; Z79.84 Long term (current) use of oral hypoglycemic drugs; Z79.899 Other long term (current) drug therapy; Z79.82 Long term (current) use of aspirin; Z68.1 Body mass index [BMI] 19.9 or less, adult; Z85.118 Personal history of other malignant neoplasm of bronchus and lung; Z87.01 Personal history of pneumonia (recurrent); Y93.89 Activity, other specified; Y92.89 Other specified places as the place of occurrence of the external cause; Y99.8 Other external cause status; N39.0 Urinary tract infection, site not specified; B96.20 Unspecified Escherichia coli [E. coli] as the cause of diseases classified elsewhere; Z16.12 Extended spectrum beta lactamase (ESBL) resistance
CPT/HCPCS: 36415; 71045; 74018; 74176; 76700; 80048; 80053; 80076; 81003; 82140; 82270; 82378; 82607; 82728; 82746; 83540; 83550; 83605; 83735; 83880; 84145; 84484; 85014; 85018; 85025; 85044; 86301; 86705; 86709; 86803; 86850; 86900; 86920; 87077; 87186; 87340; 87426; 93005; 97162; 97530; 99285; C1893; C9113; J2185; J2405; J2543; J3370; J3475; J7030; J7040; J7050; P9016

== ENCOUNTER 2021-12-13 10:15 | Inpatient (IN) | payer MEDICAID ==
[~2021-12-13] VITALS: Ht 182.9 cm; Wt 66.7 kg
[2021-12-13 11:26] LABS: HEMATOCRIT. 22.3 % (42.0-52.0); HEMOGLOBIN. 7.2 g/dL (14.0-18.0); MEAN CORPUSCULAR HEMOGLOBIN 22.5 pg (28.0-32.0); MEAN CORPUSCULAR VOLUME 69.2 fL (80.0-94.0); MEAN PLATELET VOLUME 6.7 fl (7.4-10.4); PLATELET 723 x1000/uL (130-400); RED BLOOD CELL COUNT 3.22 mill/uL (4.7-6.1); RED CELL DISTRIBUTION WIDTH 15.4 % (11.6-14.6)
[2021-12-13 11:32] LABS: CHLORIDE 112 mEq/L (98-107)
[2021-12-13 11:36] LABS: INR 1.1; PROTHROMBIN TIME 12.1 sec (9.6-11.0)
[2021-12-13 11:52] LABS: PLATELET ESTIMATE INCREASED
[2021-12-13] MEDS ORDERED: SODIUM BICARBONATE 8.4% 1 MEQ/ML 50ML SYR IV ONE (12:15)
[2021-12-13] MEDS ORDERED: CALCIUM CHLORIDE 1GM/10ML SYR IV ONE (12:15)
[2021-12-13] MEDS ORDERED: INSULIN REGULAR (HUMULIN R) 300UNITS/3ML VIAL IV ONE (12:15)
[2021-12-13] MEDS ORDERED: ALBUTEROL (0.083%) 2.5MG/3ML NEB HHN ONE (12:15)
[2021-12-13] MEDS ORDERED: DEXTROSE 50% WATER 50ML SYRINGE IV ONE (12:15)
[2021-12-13] MEDS ORDERED: PIPERACILLIN/TAZ 3.375G PREMIX 50 ML IV ONE (13:00)
[2021-12-13] MEDS ORDERED: VANCOMYCIN 1G PREMIX 200 ML IV ONE (13:00)
[2021-12-13] MEDS ORDERED: SODIUM CHLORIDE 0.9% 1000ML BAG (SEPSIS BOLUS) IV ONE (14:15)
[2021-12-13] MEDS ORDERED: VANCOMYCIN 1GM PMX (XELLIA) 200 ML IV NR (15:15)
[2021-12-13] MEDS ORDERED: ONDANSETRON HCL 4MG/2ML INJ IV PRN (18:00)
[2021-12-13 18:19] VITALS: BP 225/135
[2021-12-13 18:26] VITALS: BP 118/70
[2021-12-13 18:36] VITALS: BP 112/70
[2021-12-13 20:00] VITALS: BP 108/73
[2021-12-13] MEDS: SODIUM CHLORIDE 0.9% 1,000 ML IV SCH (20:07)
[2021-12-13 22:00] VITALS: BP 100/77
[2021-12-13] MEDS: PIPERACILLIN/TAZOBACTAM 3.375 G in DEXTROSE 5% WATER 50 ML IV SCH (22:58)
[2021-12-14] VITALS (17 sets, daily range): BP systolic 109–145; BP diastolic 52–127
[2021-12-14 00:15] LABS: CLARITY URINE CLEAR (CLEAR); COLOR URINE YELLOW (YELLOW); KETONES URINE NEGATIVE (NEGATIVE); LEUKOCYTE ESTERASE URINE 3+ (NEGATIVE); NITRITE URINE POSITIVE (NEGATIVE); OCCULT BLOOD URINE NEGATIVE (NEGATIVE); PROTEIN URINE TRACE (NEGATIVE); SPECIFIC GRAVITY URINE 1.015 (1.005-1.030); UROBILINOGEN URINE 0.2 E.U./dL (0.2-1.0)
[2021-12-14] MEDS: PIPERACILLIN/TAZOBACTAM 3.375 G in DEXTROSE 5% WATER 50 ML IV SCH ×3 (05:26→21:42)
[2021-12-14] MEDS: SODIUM CHLORIDE 0.9% 1,000 ML IV SCH ×3 (07:20→20:26)
[2021-12-14 07:21] LABS: HEMATOCRIT. 22.4 % (42.0-52.0); MEAN CORPUSCULAR HEMOGLOBIN 22.1 pg (28.0-32.0); MEAN CORPUSCULAR VOLUME 70.8 fL (80.0-94.0); MEAN PLATELET VOLUME 6.9 fl (7.4-10.4); PLATELET 681 x1000/uL (130-400); RED BLOOD CELL COUNT 3.17 mill/uL (4.7-6.1); RED CELL DISTRIBUTION WIDTH 15.8 % (11.6-14.6)
[2021-12-14] MEDS ORDERED: VANCOMYCIN 1G PREMIX 200 ML IV SCH (08:45)
[2021-12-14] MEDS ORDERED: SODIUM POLYSTYRENE SULFONATE 15 G/60 ML BOT PO NR (09:10)
[2021-12-14] MEDS: PANTOPRAZOLE SODIUM 40 MG/VIAL IV SCH ×2 (09:51→16:40)
[2021-12-14 10:28] LABS: TOTAL IRON BINDING CAPACITY 139 ug/dL (250-450)
[2021-12-14] MEDS ORDERED: LIDOCAINE HCL 1% 10 MG/ML 10ML VIAL ONE (10:29)
[2021-12-14 10:53] LABS: FOLIC ACID (FOLATE) SERUM 8.8 ng/mL (>5.38)
[2021-12-14 12:53] LABS: PLATELET ESTIMATE INCREASED
[2021-12-14] MEDS ORDERED: VANCOMYCIN 750 MG in DEXT 5% WATER 250 ML IV SCH (14:00)
[2021-12-14] MEDS: ACETAMINOPHEN 325MG TABLET PO PRN (15:27)
[2021-12-14] MEDS: FERROUS SULFATE 325MG TABLET PO SCH (16:40)
[2021-12-14] MEDS: ASCORBIC ACID 500 MG TABLET PO SCH (16:40)
[2021-12-14] MEDS: GUAIFENESIN 200MG/10ML SUGAR FREE UDC PO PRN ×2 (16:43→23:34)
[2021-12-14] MEDS: DIPHENHYDRAMINE 25MG CAPSULE PO PRN (19:02)
[2021-12-14 20:00] LABS: HEMATOCRIT 25.5 % (42.0-52.0); HEMOGLOBIN 8.1 g/dL (14.0-18.0)
[2021-12-15] VITALS (9 sets, daily range): BP systolic 128–151; BP diastolic 76–96
[2021-12-15 00:42] LABS: HEMOGLOBIN 8.7 g/dL (14.0-18.0)
[2021-12-15] MEDS: PIPERACILLIN/TAZOBACTAM 3.375 G in DEXTROSE 5% WATER 50 ML IV SCH ×3 (05:33→22:25)
[2021-12-15] MEDS: ASCORBIC ACID 500 MG TABLET PO SCH ×2 (08:08→16:20)
[2021-12-15] MEDS: ACETAMINOPHEN 325MG TABLET PO PRN (08:09)
[2021-12-15] MEDS: PANTOPRAZOLE SODIUM 40 MG/VIAL IV SCH ×2 (08:09→16:20)
[2021-12-15] MEDS: FERROUS SULFATE 325MG TABLET PO SCH ×2 (08:09→16:20)
[2021-12-15] MEDS: GUAIFENESIN 200MG/10ML SUGAR FREE UDC PO PRN ×3 (09:12→19:56)
[2021-12-15 09:43] LABS: HEMATOCRIT. 24.7 % (42.0-52.0); HEMOGLOBIN. 8.2 g/dL (14.0-18.0); MEAN CORPUSCULAR HEMOGLOBIN 24.6 pg (28.0-32.0); MEAN PLATELET VOLUME 6.9 fl (7.4-10.4); PLATELET 588 x1000/uL (130-400); RED BLOOD CELL COUNT 3.33 mill/uL (4.7-6.1); RED CELL DISTRIBUTION WIDTH 17.4 % (11.6-14.6)
[2021-12-15] MEDS: SODIUM CHLORIDE 0.9% 1,000 ML IV SCH ×2 (11:47→22:25)
[2021-12-15] MEDS: VANCOMYCIN 750MG PMX (XELLIA) 150 ML IV SCH ×2 (11:47→22:25)
[2021-12-15 11:56] LABS: PLATELET ESTIMATE INCREASED
[2021-12-15 13:39] LABS: HEMATOCRIT 27.9 % (42.0-52.0); HEMOGLOBIN 8.9 g/dL (14.0-18.0)
[2021-12-15] MEDS ORDERED: HYDROCODONE/ACETAMINOPHEN 5/325MG TABLET PO PRN (15:15)
[2021-12-15] MEDS ORDERED: NALOXONE HCL 0.4MG/ML VIAL IV PRN (15:15)
[2021-12-15] MEDS: HYDROCODONE/ACETAMINOPHEN 5/325MG TABLET PO PRN ×2 (18:03→23:02)
[2021-12-15 19:14] LABS: HEMOGLOBIN. 8.2 g/dL (14.0-18.0); MEAN CORPUSCULAR HEMOGLOBIN 23.5 pg (28.0-32.0); MEAN CORPUSCULAR VOLUME 74.1 fL (80.0-94.0); MEAN PLATELET VOLUME 6.9 fl (7.4-10.4); PLATELET 651 x1000/uL (130-400); RED BLOOD CELL COUNT 3.51 mill/uL (4.7-6.1); RED CELL DISTRIBUTION WIDTH 17.5 % (11.6-14.6)
[2021-12-15 19:59] LABS: PLATELET ESTIMATE INCREASED
[2021-12-16] VITALS (8 sets, daily range): BP systolic 118–140; BP diastolic 75–98
[2021-12-16 01:57] LABS: HEMATOCRIT 29.7 % (42.0-52.0); HEMOGLOBIN 8.8 g/dL (14.0-18.0)
[2021-12-16] MEDS: GUAIFENESIN 200MG/10ML SUGAR FREE UDC PO PRN ×2 (05:20→18:01)
[2021-12-16] MEDS: PIPERACILLIN/TAZOBACTAM 3.375 G in DEXTROSE 5% WATER 50 ML IV SCH ×2 (05:26→13:58)
[2021-12-16] MEDS: FERROUS SULFATE 325MG TABLET PO SCH ×2 (10:15→16:25)
[2021-12-16] MEDS: PANTOPRAZOLE SODIUM 40 MG/VIAL IV SCH ×2 (10:15→16:25)
[2021-12-16] MEDS: VANCOMYCIN 750MG PMX (XELLIA) 150 ML IV SCH ×2 (10:15→22:13)
[2021-12-16] MEDS: ASCORBIC ACID 500 MG TABLET PO SCH ×2 (10:15→16:25)
[2021-12-16 10:23] LABS: HEMATOCRIT 32.2 % (42.0-52.0); HEMOGLOBIN 9.4 g/dL (14.0-18.0)
[2021-12-16] MEDS: HYDROCODONE/ACETAMINOPHEN 5/325MG TABLET PO PRN ×2 (11:17→16:28)
[2021-12-16] MEDS: SODIUM CHLORIDE 0.9% 1,000 ML IV SCH (13:58)
[2021-12-16 15:42] LABS: HEMATOCRIT 27.8 % (42.0-52.0); HEMOGLOBIN 8.7 g/dL (14.0-18.0)
[2021-12-16 20:41] LABS: HEMATOCRIT 29.6 % (42.0-52.0); HEMOGLOBIN 8.8 g/dL (14.0-18.0)
[2021-12-16] MEDS: MEROPENEM 1,000 MG in SODIUM CHLORIDE 0.9% 100 ML IV SCH (22:13)
[2021-12-17] VITALS: BP 135/89
[2021-12-17] MEDS: GUAIFENESIN 200MG/10ML SUGAR FREE UDC PO PRN ×3 (00:36→17:54)
[2021-12-17 01:11] LABS: HEMATOCRIT 27.8 % (42.0-52.0); HEMOGLOBIN 8.6 g/dL (14.0-18.0)
[2021-12-17] MEDS: SODIUM CHLORIDE 0.9% 1,000 ML IV SCH ×2 (01:13→15:20)
[2021-12-17] MEDS: HYDROCODONE/ACETAMINOPHEN 5/325MG TABLET PO PRN ×3 (03:54→21:14)
[2021-12-17 04:00] VITALS: BP 136/84
[2021-12-17 05:08] LABS: HEMATOCRIT. 27.4 % (42.0-52.0); HEMOGLOBIN. 8.5 g/dL (14.0-18.0); MEAN CORPUSCULAR HEMOGLOBIN 23.7 pg (28.0-32.0); MEAN CORPUSCULAR VOLUME 76.5 fL (80.0-94.0); MEAN PLATELET VOLUME 6.7 fl (7.4-10.4); PLATELET 578 x1000/uL (130-400); RED BLOOD CELL COUNT 3.58 mill/uL (4.7-6.1); RED CELL DISTRIBUTION WIDTH 17.9 % (11.6-14.6)
[2021-12-17] MEDS: MEROPENEM 1,000 MG in SODIUM CHLORIDE 0.9% 100 ML IV SCH ×2 (05:19→18:17)
[2021-12-17 08:00] VITALS: BP_SYST 135; BP_SYST 141; BP_DIAS 85
[2021-12-17] MEDS: PANTOPRAZOLE SODIUM 40 MG/VIAL IV SCH ×2 (09:58→17:54)
[2021-12-17] MEDS: ASCORBIC ACID 500 MG TABLET PO SCH ×2 (09:58→17:54)
[2021-12-17] MEDS: FERROUS SULFATE 325MG TABLET PO SCH ×2 (09:59→17:54)
[2021-12-17 10:29] LABS: HEMATOCRIT 24.7 % (42.0-52.0)
[2021-12-17 12:00] VITALS: BP 135/81
[2021-12-17 13:19] LABS: PLATELET ESTIMATE INCREASED
[2021-12-17 16:15] VITALS: BP 141/87
[2021-12-17 16:38] LABS: HEMATOCRIT 27.3 % (42.0-52.0); HEMOGLOBIN 8.2 g/dL (14.0-18.0)
[2021-12-17 20:00] VITALS: BP_SYST 132; BP_SYST 144; BP_DIAS 73; BP_DIAS 90
[2021-12-17] MEDS: DIPHENHYDRAMINE 25MG CAPSULE PO PRN (21:15)
[2021-12-18] VITALS: BP 123/82
[2021-12-18] MEDS: GUAIFENESIN 200MG/10ML SUGAR FREE UDC PO PRN (01:25)
[2021-12-18 01:28] LABS: HEMOGLOBIN 8.1 g/dL (14.0-18.0)
[2021-12-18 04:00] VITALS: BP 151/94
[2021-12-18] MEDS: SODIUM CHLORIDE 0.9% 1,000 ML IV SCH ×2 (04:42→18:17)
[2021-12-18] MEDS: MEROPENEM 1,000 MG in SODIUM CHLORIDE 0.9% 100 ML IV SCH ×2 (06:00→17:32)
[2021-12-18 07:00] LABS: HEMATOCRIT. 26.8 % (42.0-52.0); HEMOGLOBIN. 8.5 g/dL (14.0-18.0); MEAN CORPUSCULAR HEMOGLOBIN 23.8 pg (28.0-32.0); MEAN CORPUSCULAR VOLUME 74.9 fL (80.0-94.0); MEAN PLATELET VOLUME 6.9 fl (7.4-10.4); PLATELET 591 x1000/uL (130-400); RED BLOOD CELL COUNT 3.58 mill/uL (4.7-6.1); RED CELL DISTRIBUTION WIDTH 18.2 % (11.6-14.6)
[2021-12-18 08:00] VITALS: BP 128/79
[2021-12-18] MEDS: PANTOPRAZOLE SODIUM 40 MG/VIAL IV SCH ×2 (09:17→17:32)
[2021-12-18] MEDS: FERROUS SULFATE 325MG TABLET PO SCH ×2 (09:17→17:32)
[2021-12-18] MEDS: ASCORBIC ACID 500 MG TABLET PO SCH ×2 (09:17→17:32)
[2021-12-18] MEDS: ACETAMINOPHEN 325MG TABLET PO PRN (11:22)
[2021-12-18 11:23] LABS: PLATELET ESTIMATE INCREASED
[2021-12-18 12:00] VITALS: BP 150/89
[2021-12-18 13:26] LABS: HEMATOCRIT 25.3 % (42.0-52.0); HEMOGLOBIN 8.3 g/dL (14.0-18.0)
[2021-12-18 15:20] VITALS: BP 147/89
[2021-12-18] MEDS: HYDROCODONE/ACETAMINOPHEN 5/325MG TABLET PO PRN ×2 (16:05→21:57)
[2021-12-19] VITALS: BP 135/82
[2021-12-19] MEDS: MEROPENEM 1,000 MG in SODIUM CHLORIDE 0.9% 100 ML IV SCH ×2 (06:11→18:07)
[2021-12-19] MEDS: SODIUM CHLORIDE 0.9% 1,000 ML IV SCH ×2 (06:40→20:58)
[2021-12-19 08:00] VITALS: BP 130/86
[2021-12-19] MEDS: ASCORBIC ACID 500 MG TABLET PO SCH ×2 (09:14→18:07)
[2021-12-19] MEDS: PANTOPRAZOLE SODIUM 40 MG/VIAL IV SCH ×2 (09:14→18:06)
[2021-12-19] MEDS: FERROUS SULFATE 325MG TABLET PO SCH ×2 (09:14→18:06)
[2021-12-19 12:00] VITALS: BP 126/84
[2021-12-19] MEDS: HYDROCODONE/ACETAMINOPHEN 5/325MG TABLET PO PRN ×2 (14:06→21:00)
[2021-12-19 16:00] VITALS: BP 130/85
[2021-12-19 20:00] VITALS: BP 154/96
[2021-12-19] MEDS: GUAIFENESIN 200MG/10ML SUGAR FREE UDC PO PRN (23:00)
[2021-12-20] VITALS: BP 120/76
[2021-12-20 04:00] VITALS: BP 134/91
[2021-12-20] MEDS: MEROPENEM 1,000 MG in SODIUM CHLORIDE 0.9% 100 ML IV SCH ×2 (05:26→18:52)
[2021-12-20] MEDS: GUAIFENESIN 200MG/10ML SUGAR FREE UDC PO PRN ×3 (05:26→21:07)
[2021-12-20] MEDS: HYDROCODONE/ACETAMINOPHEN 5/325MG TABLET PO PRN ×3 (05:42→21:09)
[2021-12-20 07:42] LABS: CHLORIDE 120 mEq/L (98-107)
[2021-12-20 08:00] VITALS: BP_SYST 128; BP_SYST 145; BP_DIAS 80; BP_DIAS 95
[2021-12-20] MEDS: FERROUS SULFATE 325MG TABLET PO SCH ×2 (10:23→16:34)
[2021-12-20] MEDS: ASCORBIC ACID 500 MG TABLET PO SCH ×2 (10:23→16:34)
[2021-12-20] MEDS: PANTOPRAZOLE SODIUM 40 MG/VIAL IV SCH ×2 (10:23→16:34)
[2021-12-20] MEDS: SODIUM CHLORIDE 0.9% 1,000 ML IV SCH ×2 (10:28→23:20)
[2021-12-20 12:00] VITALS: BP 128/80
[2021-12-20] MEDS ORDERED: VANCOMYCIN 1GM PMX (XELLIA) 200 ML IV SCH (12:00)
[2021-12-20 13:16] LABS: HEMOGLOBIN. 8.4 g/dL (14.0-18.0); MEAN CORPUSCULAR HEMOGLOBIN 23.8 pg (28.0-32.0); MEAN PLATELET VOLUME 7.1 fl (7.4-10.4); PLATELET 520 x1000/uL (130-400); RED BLOOD CELL COUNT 3.51 mill/uL (4.7-6.1); RED CELL DISTRIBUTION WIDTH 18.1 % (11.6-14.6)
[2021-12-20 16:00] VITALS: BP 137/86
[2021-12-20] MEDS: SODIUM BICARBONATE 650 MG TABLET PO SCH ×2 (16:34→17:00)
[2021-12-20 17:07] LABS: PLATELET ESTIMATE INCREASED
[2021-12-20 20:00] VITALS: BP 135/82
[2021-12-21] VITALS: BP 136/91
[2021-12-21 04:00] VITALS: BP 141/75
[2021-12-21] MEDS: HYDROCODONE/ACETAMINOPHEN 5/325MG TABLET PO PRN ×2 (05:24→11:08)
[2021-12-21] MEDS: MEROPENEM 1,000 MG in SODIUM CHLORIDE 0.9% 100 ML IV SCH (05:24)
[2021-12-21] MEDS: GUAIFENESIN 200MG/10ML SUGAR FREE UDC PO PRN ×2 (05:26→12:58)
[2021-12-21] MEDS: FERROUS SULFATE 325MG TABLET PO SCH (08:42)
[2021-12-21] MEDS: PANTOPRAZOLE SODIUM 40 MG/VIAL IV SCH (08:42)
[2021-12-21] MEDS: ASCORBIC ACID 500 MG TABLET PO SCH (08:42)
[2021-12-21] MEDS: SODIUM BICARBONATE 650 MG TABLET PO SCH (08:42)
[2021-12-21 10:10] VITALS: BP 142/85
[2021-12-21 11:08] VITALS: BP 142/85
[2021-12-21] MEDS: SODIUM CHLORIDE 0.9% 1,000 ML IV SCH (12:47)
== END 2021-12-21 13:38 | DRG 720 ==
LOC: ER 10:15 → 3WST 13:34 → ENRESERV 14:35 → 6EST 12-16 15:39
PROVIDERS: ADMIT Internal Medicine; ATTEND Internal Medicine
PROC: 30233N1 Transfusion of Nonautologous Red Blood Cells into Peripheral Vein, Percutaneous Approach (ICD-10-PCS; principal; 2021-12-14)
PROC: B54MZZA Ultrasonography of Right Upper Extremity Veins, Guidance (ICD-10-PCS; 2021-12-14)
PROC: 05HY33Z Insertion of Infusion Device into Upper Vein, Percutaneous Approach (ICD-10-PCS; 2021-12-14)
DX: A40.8 Other streptococcal sepsis (principal); R65.20 Severe sepsis without septic shock; E43 Unspecified severe protein-calorie malnutrition; E87.1 Hypo-osmolality and hyponatremia; N17.9 Acute kidney failure, unspecified; E87.8 Other disorders of electrolyte and fluid balance, not elsewhere classified; N39.0 Urinary tract infection, site not specified; N18.9 Chronic kidney disease, unspecified; B96.20 Unspecified Escherichia coli [E. coli] as the cause of diseases classified elsewhere; E87.5 Hyperkalemia; D50.9 Iron deficiency anemia, unspecified; K21.9 Gastro-esophageal reflux disease without esophagitis; K92.1 Melena; Z16.12 Extended spectrum beta lactamase (ESBL) resistance; Z20.822 Contact with and (suspected) exposure to COVID-19; Z68.1 Body mass index [BMI] 19.9 or less, adult; Z79.899 Other long term (current) drug therapy; Z79.82 Long term (current) use of aspirin; Z99.81 Dependence on supplemental oxygen; Z87.01 Personal history of pneumonia (recurrent); Z85.118 Personal history of other malignant neoplasm of bronchus and lung
CPT/HCPCS: 36415; 71045; 76937; 80048; 80053; 80202; 81003; 82270; 82550; 82607; 82728; 82746; 82962; 83540; 83550; 83605; 84145; 85014; 85018; 85025; 85044; 86850; 86900; 86920; 87077; 87186; 87426; 93005; 93306; 94644; 99291; C1725; C9113; J1815; J2185; J2543; J3370; J3490; J7030; J7042; J7050; J7060; P9016; Q0163

== ENCOUNTER 2022-01-15 11:45 | Inpatient (IN) | payer MEDICAID ==
[~2022-01-15] VITALS: Ht 182.9 cm; Wt 54.9 kg
[2022-01-15] MEDS ORDERED: PANTOPRAZOLE SODIUM 40 MG/VIAL IV STA (11:50)
[2022-01-15 12:10] LABS: BASOPHILS % 0.6 % (0.0-2.0); EOSINOPHILS % 9.4 % (0.0-5.0); MEAN CORPUSCULAR HEMOGLOBIN 23.3 pg (28.0-32.0); MEAN CORPUSCULAR VOLUME 72.6 fL (80.0-94.0); MEAN PLATELET VOLUME 7.4 fl (7.4-10.4); MONOCYTES % 10.5 % (2.0-8.0); NEUTROPHILS % 59.5 % (40.0-76.0); PLATELET 567 x1000/uL (130-400)
[2022-01-15 12:17] LABS: CHLORIDE 114 mEq/L (98-107)
[2022-01-15 12:20] LABS: HEMATOCRIT. 18.9 % (42.0-52.0); HEMOGLOBIN. 6.1 g/dL (14.0-18.0); INR 1.2; PARTIAL THROMBOPLASTIN TIME 28.2 sec (23.4-31.0); PROTHROMBIN TIME 12.8 sec (9.6-11.0)
[2022-01-15 12:25] LABS: TOTAL IRON BINDING CAPACITY 177 ug/dL (250-450)
[2022-01-15] MEDS ORDERED: PANTOPRAZOLE SODIUM 40 MG/VIAL IV NR (13:15)
[2022-01-15] MEDS ORDERED: LEVOFLOXACIN 500MG PREMIX 100 ML IV ONE (13:30)
[2022-01-15] MEDS ORDERED: IPRATROPIUM BROMIDE (0.02%) 0.5MG/2.5ML NEB HHN STA (23:53)
[2022-01-15] MEDS ORDERED: PREDNISONE 20MG TABLET PO STA (23:53)
[2022-01-15] MEDS ORDERED: ALBUTEROL (0.083%) 2.5MG/3ML NEB HHN STA (23:53)
[2022-01-16] MEDS ORDERED: GUAIFENESIN 200MG/10ML SUGAR FREE UDC PO ONE
[2022-01-16] MEDS ORDERED: ACETAMINOPHEN 325MG TABLET PO ONE (01:45)
[2022-01-16 07:23] LABS: HEMATOCRIT. 23.3 % (42.0-52.0); HEMOGLOBIN. 7.7 g/dL (14.0-18.0); MEAN CORPUSCULAR VOLUME 75.7 fL (80.0-94.0); MEAN PLATELET VOLUME 7.9 fl (7.4-10.4); PLATELET 551 x1000/uL (130-400); RED BLOOD CELL COUNT 3.07 mill/uL (4.7-6.1); RED CELL DISTRIBUTION WIDTH 20.9 % (11.6-14.6)
[2022-01-16 07:32] LABS: CHLORIDE 114 mEq/L (98-107)
[2022-01-16 07:56] LABS: PLATELET ESTIMATE INCREASED
[2022-01-16 09:00] VITALS: BP_SYST 143; BP_SYST 144; BP_DIAS 101; BP_DIAS 98
[2022-01-16 12:00] VITALS: BP 144/103
[2022-01-16] MEDS: GUAIFENESIN-DM 200MG-20MG/10ML UDC PO PRN (13:53)
[2022-01-16] MEDS: ACETAMINOPHEN 325MG TABLET PO PRN (13:57)
[2022-01-16] MEDS ORDERED: SODIUM BICARBONATE 8.4% 1 MEQ/ML 50ML SYR IV SCH (14:00)
[2022-01-16] MEDS ORDERED: SODIUM POLYSTYRENE SULFONATE 15 G/60 ML BOT PO SCH (14:00)
[2022-01-16] MEDS ORDERED: DEXTROSE 50% WATER 50ML SYRINGE IV SCH (14:00)
[2022-01-16] MEDS ORDERED: INSULIN REGULAR (HUMULIN R) UD 100 UNITS/ML SYR IV SCH (14:00)
[2022-01-16] MEDS ORDERED: CALCIUM GLUCONATE 1GM PREMIX 50 ML IV SCH (14:00)
[2022-01-16] MEDS: IPRATROPIUM/ALBUTEROL 0.5-3(2.5)MG/3ML NEB HHN SCH ×3 (16:00→20:58)
[2022-01-16 16:30] VITALS: BP 151/105
[2022-01-16 20:00] VITALS: BP 141/94
[2022-01-16] MEDS: HYDROCODONE/ACETAMINOPHEN 5/325MG TABLET PO PRN (21:04)
[2022-01-16] MEDS: ONDANSETRON HCL 4MG/2ML INJ IV PRN (21:58)
[2022-01-16] MEDS ORDERED: NALOXONE HCL 0.4MG/ML VIAL IV PRN (23:30)
[2022-01-16] MEDS: METOCLOPRAMIDE HCL 10MG/2ML VIAL IV PRN (23:41)
[2022-01-17] VITALS: BP 147/97
[2022-01-17] MEDS: BISMUTH SUBSALICYLATE 262 MG/15 ML-120ML BOTTLE PO PRN (01:11)
[2022-01-17] MEDS: GUAIFENESIN-DM 200MG-20MG/10ML UDC PO PRN (01:14)
[2022-01-17] MEDS: IPRATROPIUM/ALBUTEROL 0.5-3(2.5)MG/3ML NEB HHN SCH ×6 (02:00→20:59)
[2022-01-17] MEDS: HYDROCODONE/ACETAMINOPHEN 5/325MG TABLET PO PRN ×3 (02:01→23:59)
[2022-01-17 04:00] VITALS: BP 142/94
[2022-01-17] MEDS: ONDANSETRON HCL 4MG/2ML INJ IV PRN (04:40)
[2022-01-17 06:45] LABS: BASOPHILS % 0.3 % (0.0-2.0); EOSINOPHILS % 0.1 % (0.0-5.0); HEMATOCRIT. 26.6 % (42.0-52.0); HEMOGLOBIN. 8.4 g/dL (14.0-18.0); LYMPHOCYTES % 12.1 % (20.0-50.0); MEAN CORPUSCULAR VOLUME 75.9 fL (80.0-94.0); MONOCYTES % 10.2 % (2.0-8.0); NEUTROPHILS % 77.3 % (40.0-76.0); PLATELET 652 x1000/uL (130-400); RED BLOOD CELL COUNT 3.51 mill/uL (4.7-6.1); RED CELL DISTRIBUTION WIDTH 21.6 % (11.6-14.6)
[2022-01-17 08:00] VITALS: BP 144/104
[2022-01-17] MEDS: FAMOTIDINE 20MG TABLET PO SCH ×2 (09:07→21:07)
[2022-01-17] MEDS: METOCLOPRAMIDE HCL 10MG/2ML VIAL IV PRN (09:07)
[2022-01-17 11:51] LABS: CLARITY URINE CLEAR (CLEAR); COLOR URINE YELLOW (YELLOW); KETONES URINE NEGATIVE (NEGATIVE); LEUKOCYTE ESTERASE URINE NEGATIVE (NEGATIVE); NITRITE URINE NEGATIVE (NEGATIVE); OCCULT BLOOD URINE NEGATIVE (NEGATIVE); PH URINE 5.5 (4.5-8.0); PROTEIN URINE TRACE (NEGATIVE); SPECIFIC GRAVITY URINE 1.016 (1.005-1.030); UROBILINOGEN URINE 0.2 E.U./dL (0.2-1.0)
[2022-01-17 12:00] VITALS: BP 141/102
[2022-01-17] MEDS ORDERED: IPRATROPIUM/ALBUTEROL 0.5-3(2.5)MG/3ML NEB HHN PRN (12:30)
[2022-01-17] MEDS ORDERED: PREDNISONE 20MG TABLET PO SCH (12:30)
[2022-01-17 16:00] VITALS: BP 148/98
[2022-01-17] MEDS: ASCORBIC ACID 500 MG TABLET PO SCH (17:22)
[2022-01-17] MEDS: FERROUS SULFATE 325MG TABLET PO SCH (17:22)
[2022-01-17 20:00] VITALS: BP 134/81
[2022-01-17] MEDS: GUAIFENESIN 600MG ER TABLET PO SCH (21:07)
[2022-01-18] VITALS: BP 146/96
[2022-01-18] MEDS ORDERED: PREDNISONE 20MG TABLET PO NR (00:55)
[2022-01-18] MEDS: IPRATROPIUM/ALBUTEROL 0.5-3(2.5)MG/3ML NEB HHN SCH ×6 (03:30→21:22)
[2022-01-18 04:00] VITALS: BP 142/71
[2022-01-18] MEDS: FERROUS SULFATE 325MG TABLET PO SCH ×3 (06:25→15:49)
[2022-01-18] MEDS: HYDROCODONE/ACETAMINOPHEN 5/325MG TABLET PO PRN ×2 (06:26→20:56)
[2022-01-18 07:36] LABS: BASOPHILS % 0.1 % (0.0-2.0); HEMATOCRIT. 26.6 % (42.0-52.0); HEMOGLOBIN. 8.5 g/dL (14.0-18.0); LYMPHOCYTES % 12.8 % (20.0-50.0); MEAN CORPUSCULAR VOLUME 75.3 fL (80.0-94.0); MEAN PLATELET VOLUME 7.9 fl (7.4-10.4); MONOCYTES % 8.9 % (2.0-8.0); NEUTROPHILS % 78.2 % (40.0-76.0); PLATELET 649 x1000/uL (130-400); RED BLOOD CELL COUNT 3.53 mill/uL (4.7-6.1); RED CELL DISTRIBUTION WIDTH 21.4 % (11.6-14.6)
[2022-01-18 07:48] LABS: INR 1.3; PROTHROMBIN TIME 13.5 sec (9.6-11.0)
[2022-01-18 08:00] VITALS: BP 136/106
[2022-01-18] MEDS: FAMOTIDINE 20MG TABLET PO SCH ×2 (09:39→20:56)
[2022-01-18] MEDS: GUAIFENESIN 600MG ER TABLET PO SCH ×2 (09:39→20:56)
[2022-01-18] MEDS: PREDNISONE 20MG TABLET PO SCH ×2 (09:40→20:56)
[2022-01-18] MEDS: ASCORBIC ACID 500 MG TABLET PO SCH ×2 (09:40→15:49)
[2022-01-18 12:00] VITALS: BP 122/97
[2022-01-18 20:00] VITALS: BP 132/99
[2022-01-18] MEDS: BISMUTH SUBSALICYLATE 262 MG/15 ML-120ML BOTTLE PO PRN (22:17)
[2022-01-19] VITALS: BP 133/107
[2022-01-19] MEDS: IPRATROPIUM/ALBUTEROL 0.5-3(2.5)MG/3ML NEB HHN SCH ×5 (02:00→20:30)
[2022-01-19] MEDS: ZOLPIDEM TARTRATE 5MG TABLET PO PRN ×2 (03:46→20:46)
[2022-01-19 04:00] VITALS: BP 140/70
[2022-01-19 08:00] VITALS: BP 124/98
[2022-01-19 08:26] LABS: BASOPHILS % 0.2 % (0.0-2.0); HEMATOCRIT. 28.8 % (42.0-52.0); HEMOGLOBIN. 9.2 g/dL (14.0-18.0); LYMPHOCYTES % 12.8 % (20.0-50.0); MEAN CORPUSCULAR HEMOGLOBIN 24.1 pg (28.0-32.0); MEAN CORPUSCULAR VOLUME 75.8 fL (80.0-94.0); MEAN PLATELET VOLUME 8.3 fl (7.4-10.4); MONOCYTES % 10.6 % (2.0-8.0); NEUTROPHILS % 76.4 % (40.0-76.0); PLATELET 638 x1000/uL (130-400); RED BLOOD CELL COUNT 3.79 mill/uL (4.7-6.1); RED CELL DISTRIBUTION WIDTH 21.9 % (11.6-14.6)
[2022-01-19] MEDS ORDERED: SODIUM POLYSTYRENE SULFONATE 15 G/60 ML BOT PO NR (09:00)
[2022-01-19] MEDS: PREDNISONE 20MG TABLET PO SCH ×2 (09:41→20:46)
[2022-01-19] MEDS: ASCORBIC ACID 500 MG TABLET PO SCH ×2 (09:41→17:00)
[2022-01-19] MEDS: GUAIFENESIN 600MG ER TABLET PO SCH ×2 (09:41→20:46)
[2022-01-19] MEDS: FERROUS SULFATE 325MG TABLET PO SCH ×3 (09:41→16:59)
[2022-01-19] MEDS: FAMOTIDINE 20MG TABLET PO SCH ×2 (09:41→20:46)
[2022-01-19] MEDS ORDERED: CEFEPIME 2,000 MG in DEXT 5% WATER 100 ML IV SCH (10:00)
[2022-01-19 12:00] VITALS: BP 130/92
[2022-01-19] MEDS ORDERED: MEROPENEM 1,000 MG in SODIUM CHLORIDE 0.9% 100 ML IV SCH (12:00)
[2022-01-19] MEDS: HYDROCODONE/ACETAMINOPHEN 5/325MG TABLET PO PRN ×3 (12:34→20:46)
[2022-01-19] MEDS ORDERED: SULFAMETHOXAZOLE/TRIMETHOPRIM 400/80MG TAB PO SCH (15:00)
[2022-01-19 16:00] VITALS: BP 126/98
[2022-01-19] MEDS: SULFAMETHOXAZOLE/TRIMETHOPRIM 400/80MG TAB PO SCH (17:00)
[2022-01-19 20:00] VITALS: BP 122/83
[2022-01-20] VITALS: BP 121/95
[2022-01-20] MEDS: IPRATROPIUM/ALBUTEROL 0.5-3(2.5)MG/3ML NEB HHN SCH ×4 (00:30→16:30)
[2022-01-20 04:00] VITALS: BP 118/86
[2022-01-20 07:08] LABS: HIV SCREEN 4G Non Reactive (Non Reactive)
[2022-01-20 08:00] VITALS: BP 121/96
[2022-01-20] MEDS: GUAIFENESIN 600MG ER TABLET PO SCH ×2 (10:17→20:45)
[2022-01-20] MEDS: ASCORBIC ACID 500 MG TABLET PO SCH ×2 (10:18→18:06)
[2022-01-20] MEDS: PREDNISONE 20MG TABLET PO SCH ×2 (10:19→20:45)
[2022-01-20] MEDS: SULFAMETHOXAZOLE/TRIMETHOPRIM 400/80MG TAB PO SCH ×2 (10:20→18:05)
[2022-01-20] MEDS: FAMOTIDINE 20MG TABLET PO SCH (10:20)
[2022-01-20] MEDS: FERROUS SULFATE 325MG TABLET PO SCH ×3 (10:21→18:06)
[2022-01-20] MEDS: HYDROCODONE/ACETAMINOPHEN 5/325MG TABLET PO PRN ×2 (10:33→20:45)
[2022-01-20 10:48] LABS: BASOPHILS % 0.1 % (0.0-2.0); HEMATOCRIT. 25.2 % (42.0-52.0); MEAN CORPUSCULAR VOLUME 75.4 fL (80.0-94.0); MEAN PLATELET VOLUME 7.9 fl (7.4-10.4); MONOCYTES % 11.8 % (2.0-8.0); NEUTROPHILS % 77.1 % (40.0-76.0); PLATELET 512 x1000/uL (130-400); RED BLOOD CELL COUNT 3.35 mill/uL (4.7-6.1); RED CELL DISTRIBUTION WIDTH 22.2 % (11.6-14.6)
[2022-01-20 12:00] VITALS: BP 126/86
[2022-01-20 16:00] VITALS: BP 124/91
[2022-01-20 20:00] VITALS: BP 137/94
[2022-01-20] MEDS: ZOLPIDEM TARTRATE 5MG TABLET PO PRN (20:45)
[2022-01-21] VITALS: BP 123/97
[2022-01-21 04:00] VITALS: BP 119/91
[2022-01-21 06:33] LABS: HEMATOCRIT. 26.1 % (42.0-52.0); HEMOGLOBIN. 8.4 g/dL (14.0-18.0); MEAN CORPUSCULAR HEMOGLOBIN 25.1 pg (28.0-32.0); MEAN CORPUSCULAR VOLUME 77.6 fL (80.0-94.0); MEAN PLATELET VOLUME 8.4 fl (7.4-10.4); PLATELET 460 x1000/uL (130-400); RED BLOOD CELL COUNT 3.36 mill/uL (4.7-6.1); RED CELL DISTRIBUTION WIDTH 22.1 % (11.6-14.6)
[2022-01-21] MEDS: IPRATROPIUM/ALBUTEROL 0.5-3(2.5)MG/3ML NEB HHN SCH ×4 (07:45→20:27)
[2022-01-21 08:00] VITALS: BP 134/96
[2022-01-21] MEDS: GUAIFENESIN 600MG ER TABLET PO SCH ×2 (08:29→21:02)
[2022-01-21] MEDS: PREDNISONE 20MG TABLET PO SCH ×2 (08:29→21:08)
[2022-01-21] MEDS: FERROUS SULFATE 325MG TABLET PO SCH ×2 (08:29→12:45)
[2022-01-21] MEDS: FAMOTIDINE 20MG TABLET PO SCH (08:29)
[2022-01-21] MEDS: SULFAMETHOXAZOLE/TRIMETHOPRIM 400/80MG TAB PO SCH (08:29)
[2022-01-21] MEDS: ASCORBIC ACID 500 MG TABLET PO SCH ×2 (08:29→16:21)
[2022-01-21] MEDS: HYDROCODONE/ACETAMINOPHEN 5/325MG TABLET PO PRN (08:31)
[2022-01-21 12:00] VITALS: BP 117/87
[2022-01-21] MEDS ORDERED: POLYETHYLENE GLYCOL 3350 (17GM) 1 DOSE PACK PO NR (15:45)
[2022-01-21 16:00] VITALS: BP 122/98
[2022-01-21] MEDS: SODIUM BICARBONATE 650 MG TABLET PO SCH (16:21)
[2022-01-21 19:43] LABS: PLATELET ESTIMATE INCREASED
[2022-01-21 20:00] VITALS: BP 133/93
[2022-01-22] VITALS: BP 124/90
[2022-01-22] MEDS: IPRATROPIUM/ALBUTEROL 0.5-3(2.5)MG/3ML NEB HHN SCH ×4 (00:29→12:11)
[2022-01-22] MEDS: ACETAMINOPHEN 325MG TABLET PO PRN (01:25)
[2022-01-22] MEDS: ZOLPIDEM TARTRATE 5MG TABLET PO PRN ×2 (01:25→22:32)
[2022-01-22 04:00] VITALS: BP 125/84
[2022-01-22 07:04] LABS: HEMATOCRIT. 27.8 % (42.0-52.0); MEAN CORPUSCULAR HEMOGLOBIN 24.6 pg (28.0-32.0); MEAN PLATELET VOLUME 8.1 fl (7.4-10.4); PLATELET 403 x1000/uL (130-400); RED BLOOD CELL COUNT 3.66 mill/uL (4.7-6.1)
[2022-01-22 08:00] VITALS: BP 132/96
[2022-01-22] MEDS: SODIUM BICARBONATE 650 MG TABLET PO SCH ×3 (08:34→16:33)
[2022-01-22] MEDS: FAMOTIDINE 20MG TABLET PO SCH (08:34)
[2022-01-22] MEDS: PREDNISONE 20MG TABLET PO SCH ×2 (08:34→21:59)
[2022-01-22] MEDS: GUAIFENESIN 600MG ER TABLET PO SCH ×2 (08:34→21:59)
[2022-01-22] MEDS: ASCORBIC ACID 500 MG TABLET PO SCH ×2 (08:34→16:33)
[2022-01-22 12:00] VITALS: BP 144/97
[2022-01-22] MEDS: MEROPENEM 1,000 MG in SODIUM CHLORIDE 0.9% 100 ML IV SCH ×2 (14:15→22:00)
[2022-01-22 16:00] VITALS: BP 136/99
[2022-01-22 17:04] LABS: PLATELET ESTIMATE SLIGHTLY INCREASED
[2022-01-22] MEDS ORDERED: HYDROCODONE/ACETAMINOPHEN 5/325MG TABLET PO PRN (17:45)
[2022-01-22] MEDS ORDERED: NALOXONE HCL 0.4MG/ML VIAL IV PRN (17:45)
[2022-01-22] MEDS: HYDROCODONE/ACETAMINOPHEN 5/325MG TABLET PO PRN ×2 (17:48→22:00)
[2022-01-22 20:00] VITALS: BP 137/95
[2022-01-23] VITALS: BP 131/92
[2022-01-23 04:00] VITALS: BP 126/95
[2022-01-23 07:21] LABS: HEMATOCRIT. 30.5 % (42.0-52.0); HEMOGLOBIN. 9.5 g/dL (14.0-18.0); MEAN CORPUSCULAR HEMOGLOBIN 24.2 pg (28.0-32.0); MEAN CORPUSCULAR VOLUME 77.5 fL (80.0-94.0); MEAN PLATELET VOLUME 7.8 fl (7.4-10.4); PLATELET 362 x1000/uL (130-400); RED BLOOD CELL COUNT 3.94 mill/uL (4.7-6.1); RED CELL DISTRIBUTION WIDTH 23.1 % (11.6-14.6)
[2022-01-23 08:00] VITALS: BP 137/100
[2022-01-23] MEDS: SODIUM BICARBONATE 650 MG TABLET PO SCH ×3 (08:43→16:06)
[2022-01-23] MEDS: FAMOTIDINE 20MG TABLET PO SCH (08:43)
[2022-01-23] MEDS: PREDNISONE 20MG TABLET PO SCH ×2 (08:43→21:55)
[2022-01-23] MEDS: GUAIFENESIN 600MG ER TABLET PO SCH ×2 (08:43→21:54)
[2022-01-23] MEDS: ASCORBIC ACID 500 MG TABLET PO SCH ×2 (08:43→16:06)
[2022-01-23] MEDS: HYDROCODONE/ACETAMINOPHEN 5/325MG TABLET PO PRN ×2 (11:38→21:55)
[2022-01-23 11:53] VITALS: BP 129/93
[2022-01-23] MEDS: IPRATROPIUM/ALBUTEROL 0.5-3(2.5)MG/3ML NEB HHN SCH ×2 (11:59→21:53)
[2022-01-23] MEDS: MEROPENEM 1,000 MG in SODIUM CHLORIDE 0.9% 100 ML IV SCH (12:59)
[2022-01-23] MEDS ORDERED: POLYETHYLENE GLYCOL 3350 (17GM) 1 DOSE PACK PO NR (14:30)
[2022-01-23 16:00] VITALS: BP 130/89
[2022-01-23 20:00] VITALS: BP 126/90
[2022-01-23] MEDS: ZOLPIDEM TARTRATE 5MG TABLET PO PRN (21:55)
[2022-01-23 22:28] LABS: PLATELET ESTIMATE NORMAL
[2022-01-24] VITALS (7 sets, daily range): BP systolic 130–144; BP diastolic 92–101
[2022-01-24] MEDS: IPRATROPIUM/ALBUTEROL 0.5-3(2.5)MG/3ML NEB HHN SCH ×6 (01:05→21:31)
[2022-01-24] MEDS: MEROPENEM 1,000 MG in SODIUM CHLORIDE 0.9% 100 ML IV SCH ×2 (02:26→13:19)
[2022-01-24 07:46] LABS: HEMATOCRIT. 26.3 % (42.0-52.0); HEMOGLOBIN. 8.4 g/dL (14.0-18.0); MEAN CORPUSCULAR HEMOGLOBIN 24.5 pg (28.0-32.0); MEAN CORPUSCULAR VOLUME 76.7 fL (80.0-94.0); MEAN PLATELET VOLUME 7.8 fl (7.4-10.4); PLATELET 335 x1000/uL (130-400); RED BLOOD CELL COUNT 3.43 mill/uL (4.7-6.1); RED CELL DISTRIBUTION WIDTH 23.5 % (11.6-14.6)
[2022-01-24] MEDS: FAMOTIDINE 20MG TABLET PO SCH (08:12)
[2022-01-24] MEDS: SODIUM BICARBONATE 650 MG TABLET PO SCH ×3 (08:12→15:59)
[2022-01-24] MEDS: GUAIFENESIN 600MG ER TABLET PO SCH ×2 (08:12→22:01)
[2022-01-24] MEDS: ASCORBIC ACID 500 MG TABLET PO SCH ×2 (08:12→16:00)
[2022-01-24] MEDS: PREDNISONE 20MG TABLET PO SCH ×2 (08:12→22:01)
[2022-01-24] MEDS: POLYETHYLENE GLYCOL 3350 (17GM) 1 DOSE PACK PO SCH (08:30)
[2022-01-24] MEDS ORDERED: LACTULOSE 20G/30ML UDC PO NR (13:15)
[2022-01-24] MEDS: ZOLPIDEM TARTRATE 5MG TABLET PO PRN (22:01)
[2022-01-24] MEDS: HYDROCODONE/ACETAMINOPHEN 5/325MG TABLET PO PRN (22:01)
[2022-01-25] VITALS: BP 142/100
[2022-01-25] MEDS: IPRATROPIUM/ALBUTEROL 0.5-3(2.5)MG/3ML NEB HHN SCH ×4 (02:07→21:29)
[2022-01-25] MEDS: MEROPENEM 1,000 MG in SODIUM CHLORIDE 0.9% 100 ML IV SCH ×2 (02:54→13:32)
[2022-01-25 04:00] VITALS: BP 136/102
[2022-01-25 06:21] LABS: BASOPHILS % 0.1 % (0.0-2.0); EOSINOPHILS % 0.3 % (0.0-5.0); HEMATOCRIT. 26.9 % (42.0-52.0); HEMOGLOBIN. 8.6 g/dL (14.0-18.0); LYMPHOCYTES % 9.5 % (20.0-50.0); MEAN CORPUSCULAR HEMOGLOBIN 24.7 pg (28.0-32.0); MEAN CORPUSCULAR VOLUME 77.4 fL (80.0-94.0); MEAN PLATELET VOLUME 7.8 fl (7.4-10.4); MONOCYTES % 14.8 % (2.0-8.0); NEUTROPHILS % 75.3 % (40.0-76.0); PLATELET 325 x1000/uL (130-400); RED BLOOD CELL COUNT 3.47 mill/uL (4.7-6.1); RED CELL DISTRIBUTION WIDTH 24.7 % (11.6-14.6)
[2022-01-25 08:00] VITALS: BP 121/62
[2022-01-25 08:37] LABS: PHOSPHORUS 3.2 mg/dL (2.5-4.9)
[2022-01-25] MEDS: ASCORBIC ACID 500 MG TABLET PO SCH ×2 (09:16→16:18)
[2022-01-25] MEDS: FAMOTIDINE 20MG TABLET PO SCH (09:16)
[2022-01-25] MEDS: POLYETHYLENE GLYCOL 3350 (17GM) 1 DOSE PACK PO SCH (09:16)
[2022-01-25] MEDS: PREDNISONE 20MG TABLET PO SCH ×2 (09:16→21:48)
[2022-01-25] MEDS: GUAIFENESIN 600MG ER TABLET PO SCH ×2 (09:16→21:48)
[2022-01-25] MEDS: SODIUM BICARBONATE 650 MG TABLET PO SCH ×3 (09:16→16:18)
[2022-01-25 12:00] VITALS: BP 141/93
[2022-01-25 16:00] VITALS: BP 136/93
[2022-01-25 20:00] VITALS: BP 143/95
[2022-01-25 21:15] LABS: PLATELET ESTIMATE NORMAL
[2022-01-25] MEDS: ZOLPIDEM TARTRATE 5MG TABLET PO PRN (21:48)
[2022-01-25] MEDS: HYDROCODONE/ACETAMINOPHEN 5/325MG TABLET PO PRN (21:50)
[2022-01-26] VITALS: BP 136/97
[2022-01-26] MEDS: IPRATROPIUM/ALBUTEROL 0.5-3(2.5)MG/3ML NEB HHN SCH ×6 (00:38→21:30)
[2022-01-26] MEDS: MEROPENEM 1,000 MG in SODIUM CHLORIDE 0.9% 100 ML IV SCH ×2 (02:39→14:00)
[2022-01-26 04:00] VITALS: BP 142/98
[2022-01-26 07:06] LABS: HEMATOCRIT. 29.7 % (42.0-52.0); HEMOGLOBIN. 9.4 g/dL (14.0-18.0); MEAN CORPUSCULAR HEMOGLOBIN 24.7 pg (28.0-32.0); MEAN CORPUSCULAR VOLUME 77.9 fL (80.0-94.0); MEAN PLATELET VOLUME 7.9 fl (7.4-10.4); PLATELET 300 x1000/uL (130-400); RED BLOOD CELL COUNT 3.81 mill/uL (4.7-6.1); RED CELL DISTRIBUTION WIDTH 24.2 % (11.6-14.6)
[2022-01-26 07:33] LABS: PHOSPHORUS 2.8 mg/dL (2.5-4.9)
[2022-01-26 08:00] VITALS: BP 137/97
[2022-01-26] MEDS: GUAIFENESIN 600MG ER TABLET PO SCH ×2 (09:53→21:14)
[2022-01-26] MEDS: FAMOTIDINE 20MG TABLET PO SCH (09:53)
[2022-01-26] MEDS: PREDNISONE 20MG TABLET PO SCH ×2 (09:53→21:14)
[2022-01-26] MEDS: ASCORBIC ACID 500 MG TABLET PO SCH ×2 (09:53→17:31)
[2022-01-26] MEDS: POLYETHYLENE GLYCOL 3350 (17GM) 1 DOSE PACK PO SCH (09:54)
[2022-01-26] MEDS: SODIUM BICARBONATE 650 MG TABLET PO SCH ×2 (09:54→17:31)
[2022-01-26] MEDS ORDERED: MAGNESIUM 2 G PREMIX 50 ML IV NR (10:00)
[2022-01-26] MEDS: HYDROCODONE/ACETAMINOPHEN 5/325MG TABLET PO PRN ×2 (11:11→21:14)
[2022-01-26 12:00] VITALS: BP 146/98
[2022-01-26 15:15] LABS: PLATELET ESTIMATE NORMAL
[2022-01-26 16:00] VITALS: BP 140/100
[2022-01-26] MEDS ORDERED: BISACODYL 10MG SUPP PR NR (18:00)
[2022-01-26 20:00] VITALS: BP 135/83
[2022-01-26] MEDS: ZOLPIDEM TARTRATE 5MG TABLET PO PRN (21:14)
[2022-01-27] VITALS: BP 132/77
[2022-01-27] MEDS: MEROPENEM 1,000 MG in SODIUM CHLORIDE 0.9% 100 ML IV SCH (00:47)
[2022-01-27] MEDS: IPRATROPIUM/ALBUTEROL 0.5-3(2.5)MG/3ML NEB HHN SCH ×5 (01:00→16:03)
[2022-01-27 04:00] VITALS: BP 132/88
[2022-01-27 07:03] LABS: HEMATOCRIT. 28.7 % (42.0-52.0); HEMOGLOBIN. 9.1 g/dL (14.0-18.0); MEAN CORPUSCULAR HEMOGLOBIN 24.7 pg (28.0-32.0); MEAN CORPUSCULAR VOLUME 77.8 fL (80.0-94.0); MEAN PLATELET VOLUME 7.9 fl (7.4-10.4); PLATELET 323 x1000/uL (130-400); RED BLOOD CELL COUNT 3.69 mill/uL (4.7-6.1); RED CELL DISTRIBUTION WIDTH 24.3 % (11.6-14.6)
[2022-01-27 07:16] LABS: CHLORIDE 109 mEq/L (98-107)
[2022-01-27 07:25] LABS: PHOSPHORUS 3.4 mg/dL (2.5-4.9)
[2022-01-27 08:00] VITALS: BP 135/98
[2022-01-27] MEDS ORDERED: BISACODYL 10MG SUPP PR PRN (08:00)
[2022-01-27] MEDS: POLYETHYLENE GLYCOL 3350 (17GM) 1 DOSE PACK PO SCH ×2 (08:55→16:17)
[2022-01-27] MEDS: SODIUM BICARBONATE 650 MG TABLET PO SCH ×2 (08:55→16:17)
[2022-01-27] MEDS: GUAIFENESIN 600MG ER TABLET PO SCH ×2 (08:55→20:13)
[2022-01-27] MEDS: PREDNISONE 20MG TABLET PO SCH ×2 (08:55→20:13)
[2022-01-27] MEDS: ASCORBIC ACID 500 MG TABLET PO SCH ×2 (08:55→16:17)
[2022-01-27] MEDS: FAMOTIDINE 20MG TABLET PO SCH (08:55)
[2022-01-27 12:00] VITALS: BP 137/94
[2022-01-27 13:44] LABS: PLATELET ESTIMATE NORMAL
[2022-01-27] MEDS: LACTULOSE 20G/30ML UDC PO SCH ×2 (15:15→16:17)
[2022-01-27 16:00] VITALS: BP 134/101
[2022-01-27] MEDS ORDERED: BENZONATATE 100MG CAPSULE PO PRN (16:00)
[2022-01-27] MEDS: DOCUSATE SODIUM 100MG CAPSULE PO SCH ×2 (16:17→16:20)
[2022-01-27] MEDS ORDERED: NALOXONE HCL 0.4MG/ML VIAL IV PRN (19:30)
[2022-01-27 20:00] VITALS: BP 140/99
[2022-01-27] MEDS: ZOLPIDEM TARTRATE 5MG TABLET PO PRN (20:13)
[2022-01-27] MEDS: HYDROCODONE/ACETAMINOPHEN 5/325MG TABLET PO PRN (20:13)
[2022-01-28] VITALS (7 sets, daily range): BP systolic 98–147; BP diastolic 55–101
[2022-01-28] MEDS: IPRATROPIUM/ALBUTEROL 0.5-3(2.5)MG/3ML NEB HHN SCH ×4 (00:25→21:30)
[2022-01-28] MEDS: HYDROCODONE/ACETAMINOPHEN 5/325MG TABLET PO PRN ×2 (03:23→21:05)
[2022-01-28 07:46] LABS: HEMATOCRIT. 28.1 % (42.0-52.0); HEMOGLOBIN. 8.9 g/dL (14.0-18.0); MEAN CORPUSCULAR HEMOGLOBIN 24.7 pg (28.0-32.0); MEAN CORPUSCULAR VOLUME 77.9 fL (80.0-94.0); MEAN PLATELET VOLUME 8.2 fl (7.4-10.4); PLATELET 302 x1000/uL (130-400); RED BLOOD CELL COUNT 3.61 mill/uL (4.7-6.1); RED CELL DISTRIBUTION WIDTH 24.6 % (11.6-14.6)
[2022-01-28] MEDS: PREDNISONE 20MG TABLET PO SCH ×2 (08:36→21:00)
[2022-01-28] MEDS: GUAIFENESIN 600MG ER TABLET PO SCH ×2 (08:36→21:00)
[2022-01-28] MEDS: POLYETHYLENE GLYCOL 3350 (17GM) 1 DOSE PACK PO SCH ×2 (08:36→16:00)
[2022-01-28] MEDS: FAMOTIDINE 20MG TABLET PO SCH (08:36)
[2022-01-28] MEDS: SODIUM BICARBONATE 650 MG TABLET PO SCH ×2 (08:36→16:00)
[2022-01-28] MEDS: DOCUSATE SODIUM 100MG CAPSULE PO SCH ×2 (08:37→16:00)
[2022-01-28] MEDS: ASCORBIC ACID 500 MG TABLET PO SCH ×2 (08:38→16:00)
[2022-01-28 09:49] LABS: PLATELET ESTIMATE NORMAL
[2022-01-29] VITALS: BP 133/88
[2022-01-29] MEDS: IPRATROPIUM/ALBUTEROL 0.5-3(2.5)MG/3ML NEB HHN SCH ×6 (02:59→21:52)
[2022-01-29 04:00] VITALS: BP 122/95
[2022-01-29 07:35] VITALS: BP 143/99
[2022-01-29 08:05] LABS: HEMATOCRIT. 27.5 % (42.0-52.0); HEMOGLOBIN. 8.8 g/dL (14.0-18.0); MEAN CORPUSCULAR HEMOGLOBIN 24.7 pg (28.0-32.0); MEAN CORPUSCULAR VOLUME 77.4 fL (80.0-94.0); MEAN PLATELET VOLUME 7.9 fl (7.4-10.4); PLATELET 318 x1000/uL (130-400); RED BLOOD CELL COUNT 3.56 mill/uL (4.7-6.1); RED CELL DISTRIBUTION WIDTH 23.7 % (11.6-14.6)
[2022-01-29] MEDS: ASCORBIC ACID 500 MG TABLET PO SCH ×2 (08:30→16:30)
[2022-01-29] MEDS: POLYETHYLENE GLYCOL 3350 (17GM) 1 DOSE PACK PO SCH ×2 (08:30→16:31)
[2022-01-29] MEDS: DOCUSATE SODIUM 100MG CAPSULE PO SCH ×2 (08:30→16:31)
[2022-01-29] MEDS: SODIUM BICARBONATE 650 MG TABLET PO SCH ×2 (08:30→16:30)
[2022-01-29] MEDS: PREDNISONE 20MG TABLET PO SCH ×2 (08:30→20:24)
[2022-01-29] MEDS: GUAIFENESIN 600MG ER TABLET PO SCH ×2 (08:30→20:24)
[2022-01-29] MEDS: FAMOTIDINE 20MG TABLET PO SCH (08:30)
[2022-01-29 08:36] LABS: PHOSPHORUS 4.2 mg/dL (2.5-4.9)
[2022-01-29 12:07] VITALS: BP 131/95
[2022-01-29 12:39] LABS: PLATELET ESTIMATE NORMAL
[2022-01-29] MEDS ORDERED: SODIUM POLYSTYRENE SULFONATE 15 G/60 ML BOT PO NR (12:45)
[2022-01-29] MEDS ORDERED: MAGNESIUM 2 G PREMIX 50 ML IV NR (14:00)
[2022-01-29 15:41] VITALS: BP 135/98
[2022-01-29 20:00] VITALS: BP 128/92
[2022-01-30] VITALS: BP 139/96
[2022-01-30] MEDS: IPRATROPIUM/ALBUTEROL 0.5-3(2.5)MG/3ML NEB HHN SCH ×5 (00:40→21:39)
[2022-01-30] MEDS: HYDROCODONE/ACETAMINOPHEN 5/325MG TABLET PO PRN (03:16)
[2022-01-30 04:00] VITALS: BP 144/93
[2022-01-30 07:50] VITALS: BP 137/65
[2022-01-30] MEDS: ASCORBIC ACID 500 MG TABLET PO SCH ×2 (08:24→16:12)
[2022-01-30] MEDS: PREDNISONE 20MG TABLET PO SCH ×2 (08:24→21:17)
[2022-01-30] MEDS: GUAIFENESIN 600MG ER TABLET PO SCH ×2 (08:24→21:17)
[2022-01-30] MEDS: POLYETHYLENE GLYCOL 3350 (17GM) 1 DOSE PACK PO SCH ×2 (08:24→16:12)
[2022-01-30] MEDS: FAMOTIDINE 20MG TABLET PO SCH (08:24)
[2022-01-30] MEDS: SODIUM BICARBONATE 650 MG TABLET PO SCH ×2 (08:24→16:12)
[2022-01-30] MEDS: DOCUSATE SODIUM 100MG CAPSULE PO SCH ×2 (08:24→16:12)
[2022-01-30 08:42] LABS: HEMATOCRIT. 28.2 % (42.0-52.0); HEMOGLOBIN. 8.9 g/dL (14.0-18.0); MEAN CORPUSCULAR HEMOGLOBIN 24.6 pg (28.0-32.0); MEAN CORPUSCULAR VOLUME 78.2 fL (80.0-94.0); MEAN PLATELET VOLUME 7.9 fl (7.4-10.4); PLATELET 324 x1000/uL (130-400); RED BLOOD CELL COUNT 3.61 mill/uL (4.7-6.1); RED CELL DISTRIBUTION WIDTH 23.5 % (11.6-14.6)
[2022-01-30 09:19] LABS: PHOSPHORUS 4.8 mg/dL (2.5-4.9)
[2022-01-30] MEDS ORDERED: SODIUM POLYSTYRENE SULFONATE 15 G/60 ML BOT PO NR (09:45)
[2022-01-30] MEDS ORDERED: FUROSEMIDE 40MG/4ML VIAL IVP NR (10:00)
[2022-01-30 10:07] LABS: PLATELET ESTIMATE NORMAL
[2022-01-30 11:26] VITALS: BP 130/96
[2022-01-30 15:28] VITALS: BP 132/92
[2022-01-30 20:00] VITALS: BP 130/89
[2022-01-31] VITALS: BP 131/81
[2022-01-31] MEDS: IPRATROPIUM/ALBUTEROL 0.5-3(2.5)MG/3ML NEB HHN SCH ×5 (00:57→21:01)
[2022-01-31 04:00] VITALS: BP 151/85
[2022-01-31 06:48] LABS: HEMOGLOBIN. 8.8 g/dL (14.0-18.0); MEAN CORPUSCULAR HEMOGLOBIN 24.6 pg (28.0-32.0); MEAN CORPUSCULAR VOLUME 77.9 fL (80.0-94.0); PLATELET 333 x1000/uL (130-400); RED BLOOD CELL COUNT 3.59 mill/uL (4.7-6.1); RED CELL DISTRIBUTION WIDTH 23.5 % (11.6-14.6)
[2022-01-31 08:00] VITALS: BP 136/90
[2022-01-31 08:20] LABS: PHOSPHORUS 4.9 mg/dL (2.5-4.9)
[2022-01-31] MEDS: POLYETHYLENE GLYCOL 3350 (17GM) 1 DOSE PACK PO SCH ×2 (09:57→16:33)
[2022-01-31] MEDS: SODIUM BICARBONATE 650 MG TABLET PO SCH ×2 (09:57→16:33)
[2022-01-31] MEDS: PREDNISONE 20MG TABLET PO SCH ×2 (09:58→21:45)
[2022-01-31] MEDS: FAMOTIDINE 20MG TABLET PO SCH (09:58)
[2022-01-31] MEDS: GUAIFENESIN 600MG ER TABLET PO SCH ×2 (09:58→21:45)
[2022-01-31] MEDS: ASCORBIC ACID 500 MG TABLET PO SCH ×2 (09:58→16:33)
[2022-01-31] MEDS: DOCUSATE SODIUM 100MG CAPSULE PO SCH ×2 (09:58→16:33)
[2022-01-31] MEDS: HYDROCODONE/ACETAMINOPHEN 5/325MG TABLET PO PRN (10:15)
[2022-01-31] MEDS: FUROSEMIDE 40MG/4ML VIAL IVP SCH (11:49)
[2022-01-31 12:00] VITALS: BP 137/100
[2022-01-31 16:00] VITALS: BP 145/86
[2022-01-31 17:37] LABS: PLATELET ESTIMATE NORMAL
[2022-01-31 20:00] VITALS: BP 135/93
[2022-02-01] VITALS: BP 137/91
[2022-02-01] MEDS: IPRATROPIUM/ALBUTEROL 0.5-3(2.5)MG/3ML NEB HHN SCH ×5 (01:18→21:49)
[2022-02-01 04:00] VITALS: BP 139/101
[2022-02-01 06:31] LABS: HEMATOCRIT. 28.2 % (42.0-52.0); HEMOGLOBIN. 8.9 g/dL (14.0-18.0); MEAN CORPUSCULAR HEMOGLOBIN 24.7 pg (28.0-32.0); MEAN CORPUSCULAR VOLUME 78.4 fL (80.0-94.0); MEAN PLATELET VOLUME 8.1 fl (7.4-10.4); PLATELET 350 x1000/uL (130-400); RED CELL DISTRIBUTION WIDTH 23.4 % (11.6-14.6)
[2022-02-01] MEDS: HYDROCODONE/ACETAMINOPHEN 5/325MG TABLET PO PRN (06:46)
[2022-02-01 08:00] VITALS: BP 145/101
[2022-02-01] MEDS: DOCUSATE SODIUM 100MG CAPSULE PO SCH ×2 (08:34→17:04)
[2022-02-01] MEDS: PREDNISONE 20MG TABLET PO SCH ×2 (08:34→20:52)
[2022-02-01] MEDS: FAMOTIDINE 20MG TABLET PO SCH (08:34)
[2022-02-01] MEDS: SODIUM BICARBONATE 650 MG TABLET PO SCH ×2 (08:34→17:04)
[2022-02-01] MEDS: ASCORBIC ACID 500 MG TABLET PO SCH ×2 (08:34→17:04)
[2022-02-01] MEDS: GUAIFENESIN 600MG ER TABLET PO SCH ×2 (08:34→20:52)
[2022-02-01] MEDS: POLYETHYLENE GLYCOL 3350 (17GM) 1 DOSE PACK PO SCH ×2 (08:35→17:04)
[2022-02-01] MEDS: FUROSEMIDE 40MG/4ML VIAL IVP SCH (09:09)
[2022-02-01 12:00] VITALS: BP 134/95
[2022-02-01 14:25] LABS: PLATELET ESTIMATE NORMAL
[2022-02-01 16:00] VITALS: BP 139/99
[2022-02-01] MEDS ORDERED: HYDROCODONE/ACETAMINOPHEN 5/325MG TABLET PO PRN (19:30)
[2022-02-01] MEDS ORDERED: NALOXONE HCL 0.4MG/ML VIAL IV PRN (19:45)
[2022-02-01 20:00] VITALS: BP 114/86
[2022-02-02] VITALS: BP 132/87
[2022-02-02] MEDS: IPRATROPIUM/ALBUTEROL 0.5-3(2.5)MG/3ML NEB HHN SCH ×6 (00:50→20:33)
[2022-02-02 04:00] VITALS: BP 142/99
[2022-02-02 07:19] LABS: HEMATOCRIT. 27.4 % (42.0-52.0); HEMOGLOBIN. 8.7 g/dL (14.0-18.0); MEAN CORPUSCULAR HEMOGLOBIN 24.8 pg (28.0-32.0); MEAN PLATELET VOLUME 8.1 fl (7.4-10.4); PLATELET 337 x1000/uL (130-400); RED BLOOD CELL COUNT 3.52 mill/uL (4.7-6.1)
[2022-02-02 08:00] VITALS: BP 137/101
[2022-02-02] MEDS: PREDNISONE 20MG TABLET PO SCH ×2 (08:20→21:08)
[2022-02-02] MEDS: POLYETHYLENE GLYCOL 3350 (17GM) 1 DOSE PACK PO SCH ×2 (08:20→17:12)
[2022-02-02] MEDS: GUAIFENESIN 600MG ER TABLET PO SCH ×2 (08:20→21:08)
[2022-02-02] MEDS: SODIUM BICARBONATE 650 MG TABLET PO SCH ×2 (08:20→17:12)
[2022-02-02] MEDS: DOCUSATE SODIUM 100MG CAPSULE PO SCH ×2 (08:20→17:12)
[2022-02-02] MEDS: FUROSEMIDE 40MG/4ML VIAL IVP SCH (08:20)
[2022-02-02] MEDS: FAMOTIDINE 20MG TABLET PO SCH (08:20)
[2022-02-02] MEDS: ASCORBIC ACID 500 MG TABLET PO SCH ×2 (08:20→10:19)
[2022-02-02 11:46] VITALS: BP 140/101
[2022-02-02 12:24] LABS: PLATELET ESTIMATE NORMAL
[2022-02-02 15:33] VITALS: BP 149/105
[2022-02-02 20:00] VITALS: BP 142/99
[2022-02-03] VITALS: BP 146/101
[2022-02-03] MEDS: IPRATROPIUM/ALBUTEROL 0.5-3(2.5)MG/3ML NEB HHN SCH ×6 (00:02→20:34)
[2022-02-03 04:00] VITALS: BP 140/98
[2022-02-03 07:38] LABS: HEMATOCRIT. 28.8 % (42.0-52.0); HEMOGLOBIN. 9.3 g/dL (14.0-18.0); MEAN CORPUSCULAR HEMOGLOBIN 25.2 pg (28.0-32.0); PLATELET 361 x1000/uL (130-400); RED BLOOD CELL COUNT 3.69 mill/uL (4.7-6.1); RED CELL DISTRIBUTION WIDTH 22.8 % (11.6-14.6)
[2022-02-03 07:41] LABS: PHOSPHORUS 4.8 mg/dL (2.5-4.9)
[2022-02-03 08:00] VITALS: BP 134/87
[2022-02-03] MEDS: POLYETHYLENE GLYCOL 3350 (17GM) 1 DOSE PACK PO SCH ×2 (09:07→17:17)
[2022-02-03] MEDS: FUROSEMIDE 40MG/4ML VIAL IVP SCH (09:07)
[2022-02-03] MEDS: GUAIFENESIN 600MG ER TABLET PO SCH ×2 (09:09→21:25)
[2022-02-03] MEDS: FAMOTIDINE 20MG TABLET PO SCH (09:09)
[2022-02-03] MEDS: ASCORBIC ACID 500 MG TABLET PO SCH (09:10)
[2022-02-03] MEDS: DOCUSATE SODIUM 100MG CAPSULE PO SCH ×2 (09:10→17:17)
[2022-02-03] MEDS: SODIUM BICARBONATE 650 MG TABLET PO SCH (09:10)
[2022-02-03] MEDS: PREDNISONE 20MG TABLET PO SCH ×2 (09:10→21:25)
[2022-02-03] MEDS ORDERED: MAGNESIUM 2 G PREMIX 50 ML IV NR (10:30)
[2022-02-03 12:00] VITALS: BP 131/77
[2022-02-03 13:06] LABS: PLATELET ESTIMATE NORMAL
[2022-02-03 16:00] VITALS: BP 137/87
[2022-02-03] MEDS: FERROUS SULFATE 325MG TABLET PO SCH (17:17)
[2022-02-03 20:00] VITALS: BP 125/78
[2022-02-04] VITALS: BP 133/78
[2022-02-04] MEDS: IPRATROPIUM/ALBUTEROL 0.5-3(2.5)MG/3ML NEB HHN SCH ×4 (00:20→12:04)
[2022-02-04 04:00] VITALS: BP_SYST 136
[2022-02-04 07:37] LABS: HEMATOCRIT. 29.4 % (42.0-52.0); HEMOGLOBIN. 9.5 g/dL (14.0-18.0); MEAN CORPUSCULAR HEMOGLOBIN 25.1 pg (28.0-32.0); MEAN CORPUSCULAR VOLUME 77.9 fL (80.0-94.0); MEAN PLATELET VOLUME 8.1 fl (7.4-10.4); PLATELET 337 x1000/uL (130-400); RED BLOOD CELL COUNT 3.78 mill/uL (4.7-6.1); RED CELL DISTRIBUTION WIDTH 22.2 % (11.6-14.6)
[2022-02-04 08:00] VITALS: BP 108/66
[2022-02-04] MEDS ORDERED: FUROSEMIDE 40MG TABLET PO SCH (09:00)
[2022-02-04] MEDS ORDERED: SODIUM BICARBONATE 650 MG TABLET PO SCH (09:00)
[2022-02-04 09:02] LABS: PLATELET ESTIMATE NORMAL
[2022-02-04] MEDS: POLYETHYLENE GLYCOL 3350 (17GM) 1 DOSE PACK PO SCH (09:36)
[2022-02-04] MEDS: DOCUSATE SODIUM 100MG CAPSULE PO SCH (09:37)
[2022-02-04] MEDS: ASCORBIC ACID 500 MG TABLET PO SCH (09:37)
[2022-02-04] MEDS: FAMOTIDINE 20MG TABLET PO SCH (09:37)
[2022-02-04] MEDS: GUAIFENESIN 600MG ER TABLET PO SCH (09:37)
[2022-02-04] MEDS: FERROUS SULFATE 325MG TABLET PO SCH (09:37)
[2022-02-04] MEDS: PREDNISONE 20MG TABLET PO SCH (09:51)
[2022-02-04 12:00] VITALS: BP 128/94
[2022-02-04 14:26] VITALS: BP 128/94
== END 2022-02-04 13:20 | DRG 663 ==
LOC: ER 12:03 → 6EST 01-16 00:51 → EDBEDREQTM 01-16 01:23 → EDBEDREQ 01-16 01:23 → EDBEDREQDT 01-16 01:23 → ENRESERV 01-16 07:58 → ER 01-16 10:11 → 8WST 01-16 13:01
PROVIDERS: ADMIT Internal Medicine; ATTEND Internal Medicine
PROC: 30233N1 Transfusion of Nonautologous Red Blood Cells into Peripheral Vein, Percutaneous Approach (ICD-10-PCS; principal; 2022-01-15)
DX: D50.9 Iron deficiency anemia, unspecified (principal); J96.00 Acute respiratory failure, unspecified whether with hypoxia or hypercapnia; E43 Unspecified severe protein-calorie malnutrition; N17.9 Acute kidney failure, unspecified; E87.2 Acidosis; I13.0 Hypertensive heart and chronic kidney disease with heart failure and stage 1 through stage 4 chronic kidney disease, or unspecified chronic kidney disease; I50.30 Unspecified diastolic (congestive) heart failure; J84.9 Interstitial pulmonary disease, unspecified; E87.1 Hypo-osmolality and hyponatremia; Z20.822 Contact with and (suspected) exposure to COVID-19; F10.10 Alcohol abuse, uncomplicated; J90 Pleural effusion, not elsewhere classified; E87.5 Hyperkalemia; K21.9 Gastro-esophageal reflux disease without esophagitis; N39.0 Urinary tract infection, site not specified; Z68.1 Body mass index [BMI] 19.9 or less, adult; I25.10 Atherosclerotic heart disease of native coronary artery without angina pectoris; N18.4 Chronic kidney disease, stage 4 (severe); E83.42 Hypomagnesemia; K74.60 Unspecified cirrhosis of liver; R63.4 Abnormal weight loss; Z79.899 Other long term (current) drug therapy; Z91.19 Patient's noncompliance with other medical treatment and regimen; Z87.440 Personal history of urinary (tract) infections; Z99.81 Dependence on supplemental oxygen; Z87.01 Personal history of pneumonia (recurrent); Z85.118 Personal history of other malignant neoplasm of bronchus and lung; J42 Unspecified chronic bronchitis; K59.00 Constipation, unspecified; K80.20 Calculus of gallbladder without cholecystitis without obstruction
CPT/HCPCS: 36415; 71045; 71250; 74018; 76700; 80048; 80053; 80076; 81003; 82728; 83540; 83550; 83605; 83735; 84100; 84132; 84145; 84443; 84550; 85025; 85044; 86850; 86900; 86920; 87070; 87077; 87116; 87186; 87389; 87426; 93005; 93970; 94640; 97162; 99291; C9113; C9803; J0610; J0692; J1815; J1940; J1956; J2185; J2405; J2765; J3475; J3490; J7050; J7060; J7512; P9016